=== PATIENT | female | born 2005 ===

== ENCOUNTER 2025-03-13 12:57 | Inpatient (IN) | payer OTHER, SELFPAY ==
[2025-03-13 13:05] VITALS: BP 115/75; BP 123/80; PULSE 122; PULSE 124; RESP 18; TEMP 37.1; O2SAT 100; BMI 25.5
[2025-03-13 13:17] VITALS: BP 123/80; PULSE 122; RESP 18; TEMP 37.1; O2SAT 100
--- NOTE | 2025-03-13 13:26 | ECG_ITS ---
Test Reason : OVERDOSE Blood Pressure : */* mmHG Vent. Rate : 99 BPM Atrial Rate : 99 BPM P-R Int : 142 ms QRS Dur : 98 ms QT Int : 356 ms P-R-T Axes : 69 92 34 degrees QTcB Int : 456 ms Normal sinus rhythm Rightward axis Incomplete right bundle branch block Septal infarct , age undetermined Abnormal ECG No previous ECGs available Referred By: Generic ED Physician Electronically Signed By: Ric Ruelas
--- NOTE | 2025-03-13 13:33 | ED.GENADULT ---
HPI - General Adult General Chief complaint: Psychiatric Symptoms Stated complaint: SI Time Seen by Provider: 03/13/25 13:27 Source: patient, EMS, RN notes reviewed and old records reviewed Mode of arrival: EMS Limitations: no limitations History of Present Illness ED Provider: Nu FISH narrative: Patient is a 19-year-old female with history of self-harm presenting to the emergency department via EMS after intentionally ingesting Aleve, Lamictal, Ativan, trazodone in an attempt at self harm prior to arrival. She self induced vomiting then called 911. She is not forthcoming when answering questions, smiling inappropriately, but does state that she has both a therapist and psychiatrist in the community. She states that she just returned to school after a 6 month medical leave of absence. She reports history of intentional self harm. Denies homicidal ideation, auditory or visual hallucinations. Reports increased depression. Did not arrive on a section 12 but placed on one by Dr. Schumacher, ED attending, on arrival at recommendation of CARE team. She reports mild lightheadedness, denies any chest or abdominal pain, nausea, or any other physical complaints. Poison control contacted by RN prior to my assessment. complaint: toxic ingestion Related Data Home Medications ?Medication ?Instructions ?Recorded ?Confirmed escitalopram oxalate 20 mg tablet 20 mg PO DAILY 03/14/25 03/14/25 lamotrigine 100 mg tablet 100 mg PO BID 03/14/25 03/14/25 trazodone 50 mg tablet 12.5 - 25 mg PO BEDTIME 03/14/25 03/14/25 Allergies Allergy/AdvReac Type Severity Reaction Status Date / Time Penicillins Allergy Hives Verified 03/13/25 13:13 Review of Systems Review of Systems: As per HPI Yes all other systems are reviewed and are negative Constitutional: Constitutional: Reports as per HPI [facility] Past Medical History Medical History (Updated 03/17/25 @ 22:50 by Renard Ferguson MD) Borderline personality disorder MDD (major depressive disorder), recurrent severe, without psychosis Social History Social History Household Members: Other Household Members Other:: college dorm Housing: Other Do you presently have visiting nurse or other home services: No Patient Tobacco Use Status: Never used Tobacco Smoked in Last 30 Days: No e-Cigarette/Vaping Use: Never Used Use of substances other than those prescribed or required for medical reasons: Yes Substance Use Type: Marijuana Substance Use Frequency: Occasionally Currently Displaying Signs/Symptoms of Drug Intoxication Withdrawal: No Do you feel safe in your current relationship?: No Current Relationship Advance Directives: No Advance Directives Information Provided: Yes Do you have thoughts of harming others: None Do you have a plan to hurt others: No Plan Recently lost weight without trying: No Nutrition Risks: No Nutritional Risk Patient : No : No Poor oral hygiene: No service: No Sexual orientation: Unable to collect Physical Exam ED Vital Signs: Vital Signs - 24 hr 03/15/25 14:46 03/16/25 06:23 Temperature 97.2 F 97.1 F Pulse Rate 78 61 Respiratory Rate 14 18 Blood Pressure 135/69 140/74 H Pulse Oximetry 99 100 Oxygen Delivery Method Room Air Room Air BMI result Body Mass Index 25.5 Vital signs have been reviewed and appear to be correct. Blood pressure normal. Heart rate tachycardic. Respiratory rate normal. Temperature normal. Oxygen saturation normal. Const General: cooperative, healthy appearing and no acute distress Orientation/consciousness: oriented to person, oriented to place, oriented to time and patient oriented x3 Limitations: no limitations [facility] Head: Yes normocephalic and Yes atraumatic Ears: external ears normal General nose exam: Normal external nose present Face and sinus: Yes face symmetric Mouth: oropharynx normal and moist mucous membranes Throat: Yes uvula midline Eyes Pupils: Equal, round and reactive pupils present Neck Neck: Yes normal visual inspection and Yes supple Resp Effort & Inspection: normal respiratory effort and able to speak in complete sentences Auscultation: clear to auscultation bilaterally Cardio Rate: regular rate Rhythm: regular rhythm Heart sounds: S1 normal heart sound present and S2 normal heart sound present GI Palpation (GI): Soft to palpation and nontender Auscultation: normoactive bowel sounds General: Yes no CVA tenderness Back/Spine/Pelvis Back: no CVA tenderness Skin Other: healed linear scars to bilateral forearms General skin exam: elasticity normal and turgor normal Neuro General: oriented to person, oriented to place, oriented to time, patient oriented x3, moves all extremities, no focal motor deficits and CN's II-XI intact bilaterally Cranial nerves: Yes Equal, round and reactive pupils present Cognition (Neuro): normal cognition Extrem General: Yes full ROM, Yes no pedal edema and Yes no calf tenderness Psych Appearance: grossly normal Mental Status: mental status grossly normal Speech and movement: Normal speech and movement present Affect: Other affect and mood findings present (inappropriate ) Attitude: Guarded attititude/behavior present and Refuses to answer (attititude/behavior) Thought process: Normal thought process present Thought content: Suicidality present, no homicidality, no hallucinations and Depressive thoughts present Insight: Limited insight present (Psych) Judgement: Limited judgement present (Psych) Course Reevaluation(s) Reevaluation #1: Repeat EKG shows slight increase of QTc. Patient remains on traffic monitor specialist. No new complaints. Time: 15:42 Reevaluation #2: Poison control called back, recommending IV fluids and repeat CMP at 1800. Time: 17:01 Reevaluation #3: Third EKG with improving QTc, repeat CMP WNL. Will medically clear patient at this time and place on physician observation for CARE team evaluation. Patient is alert and oriented x3, hemodynamically stable, tachycardia has improved with IV fluids. Time: 19:36 Additional Reevaluation(s): Time: 04:54 Date: 03/14/25 Provider: Fritz Schumacher MD Patient in physician observation for psychiatric evaluation.? No acute events reported overnight. No current complaints. VS stable.? Patient is in bed search status. Will continue to monitor. Time: 07:52 Date: 03/15/25 Provider: Fritz Schumacher MD Patient in physician observation for psychiatric evaluation.? No acute events reported overnight. No current complaints. VS stable.? Patient is in bed search status. Will continue to monitor. DR. No's Progress note 08:00, 03/16/2025: Patient in physician observation for psych evaluation, no acute events reported by nurse overnight, no current complaints, VSS, care team input is appreciated, bed search is underway, continue physician observation. Time: 17:53 Date: 03/16/25 Provider: Fritz Schumacher MD Physician observation ended at 17:53.Patient to be admitted as inpatient to psychiatry. Medications Administered Generic Name Dose Route Start Last Admin Trade Name Freq PRN Reason Stop Dose Admin Al Hydroxide/Mg Hydroxide 30 ml 03/16/25 15:03 03/24/25 18:03 Magnesium Hydrox/Alum Hydrox 30 Ml Oral.Susp PO 30 ml Q6H PRN Administration Heartburn/Nausea Clonidine HCl 0.1 mg 03/17/25 12:13 03/24/25 10:54 Clonidine Hcl 0.1 Mg Tablet PO 0.1 mg Q4H PRN Administration moderate anxiety Protocol Escitalopram Oxalate 20 mg 03/14/25 09:00 03/26/25 08:03 Escitalopram Oxalate 20 Mg Tablet PO 20 mg DAILY YVONNE Administration Guanfacine HCl 2 mg 03/26/25 09:00 03/26/25 08:03 Guanfacine Hcl Er 2 Mg Tab.Er.24h PO 2 mg DAILY YVONNE Administration Lamotrigine 100 mg 03/25/25 21:00 03/26/25 08:03 Lamotrigine 100 Mg Tablet PO 100 mg BID YVONNE Administration Lorazepam 1 mg 03/16/25 18:29 03/16/25 18:44 Lorazepam 1 Mg Tablet PO 1 mg DAILY PRN Administration severe anxiety Trazodone HCl 50 mg 03/16/25 15:03 03/25/25 22:32 Trazodone Hcl 50 Mg Tablet PO 50 mg BEDTIME MRX1 PRN Administration Insomnia Trazodone HCl 50 mg 03/17/25 21:00 03/25/25 21:31 Trazodone Hcl 50 Mg Tablet PO 50 mg BEDTIME YVONNE Administration Discontinued Medications Generic Name Dose Route Start Last Admin Trade Name Asifq PRN Reason Stop Dose Admin Guanfacine HCl 1 mg 03/24/25 16:40 03/25/25 07:58 Guanfacine Hcl Er 1 Mg Tab.Er.24h PO 1 mg DAILY YVONNE Administration Guanfacine HCl 1 mg 03/25/25 13:53 03/25/25 14:37 Guanfacine Hcl Er 1 Mg Tab.Er.24h PO 03/25/25 13:54 1 mg ONCE ONE Administration Sodium Chloride 1,000 mls @ 999 mls/hr 03/13/25 17:00 03/13/25 18:39 Ns IV 03/13/25 18:00 Infused .Q1H1M YVONNE Infusion Sodium Chloride 1,000 mls @ 999 mls/hr 03/13/25 18:15 03/13/25 19:40 Ns IV 03/13/25 19:15 Infused .Q1H1M YVONNE Infusion Lamotrigine 100 mg 03/14/25 09:00 03/14/25 09:13 Lamotrigine 100 Mg Tablet PO 100 mg BID YVONNE Administration Lamotrigine 75 mg 03/14/25 20:56 03/14/25 21:11 Lamotrigine 25 Mg Tablet PO 03/14/25 20:57 75 mg BEDTIME ONE Administration Lamotrigine 75 mg 03/15/25 21:00 03/24/25 21:46 Lamotrigine 25 Mg Tablet PO 75 mg BEDTIME YVONNE Administration Lamotrigine 100 mg 03/15/25 09:00 03/25/25 07:58 Lamotrigine 100 Mg Tablet PO 100 mg DAILY YVONNE Administration Perphenazine 4 mg 03/20/25 15:49 03/22/25 10:51 Perphenazine 4 Mg Tablet PO 4 mg BID PRN Administration grounding support Perphenazine 2 mg 03/23/25 11:35 03/24/25 08:42 Perphenazine 2 Mg Tablet PO 2 mg DAILY YVONNE Administration Risperidone 0.5 mg 03/17/25 13:05 03/18/25 21:21 Risperidone 0.5 Mg Tablet PO 0.5 mg DAILY YVONNE Administration Risperidone 0.5 mg 03/19/25 21:00 03/22/25 20:54 Risperidone 0.5 Mg Tablet PO 0.5 mg BEDTIME YVONNE Administration Risperidone 0.25 mg 03/19/25 14:47 03/20/25 10:00 Risperidone 0.25 Mg Tablet PO 0.25 mg BID PRN Administration Grounding support Trazodone HCl 25 mg 03/14/25 21:00 03/16/25 22:43 Trazodone Hcl 25 Mg Halftab PO 25 mg BEDTIME YVONNE Administration Medical Decision Making Medical Decision Making MDM Narrative: Patient is a 19-year-old female with history of self-harm presenting to the emergency department via EMS after intentionally ingesting Aleve, Lamictal, Ativan, trazodone in an attempt at self harm prior to arrival. On exam patient is awake, A+Ox3, VS WNL, afebrile, normal neurological exam without focal deficits, physical exam findings as above. Given reported symptoms and physical exam findings, initial differential includes but is not limited to cardiac arrhythmia, electrolyte abnormality, depression, suicidal ideation, intentional ingestion. Poison control recommending labs, acetaminophen and salicylate levels, EKGs Q2Hx3, then Q4H, symptomatic management. Labs unremarkable, salicylates and acetaminophen negative. Urine drug screen negative. Initial EKG shows normal sinus rhythm, slightly prolonged QTc. Will plan to monitor per recommendations of poison control. 2:37 PM 03/15/2025 (Dr. Donny Proctor): Patient will continue with bed search, no other issues reported Differential Diagnosis Differential Diagnoses: The differential diagnosis associated with the presentation includes as per [facility] Admission/Observation Consideration of admission/observation: Escalation of care including admission/observation considered Consult Healthcare Provider Management of the patient was discussed with: Behavioral Health Provider Lab Data [facility] Lab Attestation statement: I reviewed the patient's lab results. as per [facility] 03/13/25 13:55 03/17/25 08:58 Labs: Lab Results 03/13/25 03/13/25 03/13/25 Range/Units 13:50 13:54 13:55 WBC 8.0 (4.8-10.8) X10*3/uL RBC 4.28 (4.20-5.50) X10*6/uL Hgb 13.1 (12.0-16.0) g/dl Hct 38.9 (37.0-47.0) % MCV 90.9 (80.0-98.0) fL MCH 30.6 (27.0-33.0) pg MCHC 33.7 (31.0-35.0) g/dl RDW 12.4 (11.0-16.0) % Plt Count 246 (160-400) X10*3/uL MPV 10.0 (9.4-12.3) fL Immature Gran % (Auto) 0.4 (0.0-0.4) % Neut % (Auto) 85.3 H (45-73) % Lymph % (Auto) 7.5 L (20-40) % Pepin % (Auto) 6.0 (2-11) % Eos % (Auto) 0.4 (0-4) % Baso % (Auto) 0.4 (0-2) % Lymph # (Auto) 0.6 L (1.2-4.9) X10*3/uL Pepin # (Auto) 0.5 (0.1-1.2) X10*3/uL Eos # (Auto) 0.0 (0.0-0.4) X10*3/uL Baso # (Auto) 0.0 (0.0-0.2) X10*3/uL Abs Immat Gran (auto) 0.03 (0.00-0.03) X10*3/uL Absolute Neuts (auto) 6.9 (2.0-8.3) x10*3/uL Absolute Nucleated RBC 0.000 (0.0-0.012) X10*3/uL Nucleated RBC % (auto) 0.0 (0.0-0.2) /100WBC PT 12.1 (10.9-12.4) SEC INR 1.1 (0.9-1.1) Sodium 142 (135-145) mmol/L Potassium 3.5 (3.3-5.1) mmol/L Chloride 108 (96-108) mmol/L Carbon Dioxide 26 (22-29) mmol/L Anion Gap 12 (12-20) BUN 11 (9-16) mg/dL Creatinine 0.66 (0.5-1.4) mg/dL Estim Creat Clear Calc 113.1 Estimated GFR > 60 Random Glucose 99 (60-115) mg/dL Calcium 9.0 (8.4-10.2) mg/dL Magnesium 2.0 (1.6-2.6) mg/dL Total Bilirubin 0.1 (0.0-1.0) mg/dL AST 18 (5-31) U/L ALT < 6 (0-31) U/L Alkaline Phosphatase 43 (39-117) U/L Total Protein 6.9 (6.5-8.0) g/dL Albumin 4.5 (3.5-5.0) g/dL Beta HCG, Quant < 2 mIU/mL Urine Color Yellow Urine Appearance Clear Urine pH 6.5 (5.0-9.0) Ur Specific Kennedy 1.025 (1.005-1.025) Urine Protein Negative (Neg-Trace) mg/dL Urine Glucose (UA) Negative (Negative) mg/dL Urine Ketones Negative (Negative) mg/dL Urine Blood Negative (Negative) Urine Nitrite Negative (Negative) Ur Leukocyte Esterase Negative (Negative) Salicylates < 5.0 L (15-30) mg/dL Urine Opiates Screen Not Detected (Not Detect) Ur Buprenorphine Scrn Not Detected (Not Detect) ng/mL Ur Oxycodone Screen Not Detected (Not Detect) ng/mL Urine Methadone Screen Not Detected (Not Detect) ng/mL Urine Fentanyl Screen Not Detected (Not Detect) Acetaminophen < 3 (<30) mcg/mL Ur Barbiturates Screen Not Detected (Not Detect) Ur Phencyclidine Scrn Not Detected (Not Detect) Ur Amphetamines Screen Not Detected (Not Detect) U Benzodiazepines Scrn Not Detected (Not Detect) Urine Cocaine Screen Not Detected (Not Detect) U Marijuana (THC) Screen Not Detected (Not Detect) 03/13/25 Range/Units 18:02 WBC (4.8-10.8) X10*3/uL RBC (4.20-5.50) X10*6/uL Hgb (12.0-16.0) g/dl Hct (37.0-47.0) % MCV (80.0-98.0) fL MCH (27.0-33.0) pg MCHC (31.0-35.0) g/dl RDW (11.0-16.0) % Plt Count (160-400) X10*3/uL MPV (9.4-12.3) fL Immature Gran % (Auto) (0.0-0.4) % Neut % (Auto) (45-73) % Lymph % (Auto) (20-40) % Pepin % (Auto) (2-11) % Eos % (Auto) (0-4) % Baso % (Auto) (0-2) % Lymph # (Auto) (1.2-4.9) X10*3/uL Pepin # (Auto) (0.1-1.2) X10*3/uL Eos # (Auto) (0.0-0.4) X10*3/uL Baso # (Auto) (0.0-0.2) X10*3/uL Abs Immat Gran (auto) (0.00-0.03) X10*3/uL Absolute Neuts (auto) (2.0-8.3) x10*3/uL Absolute Nucleated RBC (0.0-0.012) X10*3/uL Nucleated RBC % (auto) (0.0-0.2) /100WBC PT (10.9-12.4) SEC INR (0.9-1.1) Sodium 143 (135-145) mmol/L Potassium 3.4 (3.3-5.1) mmol/L Chloride 111 H (96-108) mmol/L Carbon Dioxide 26 (22-29) mmol/L Anion Gap 9 L (12-20) BUN 9 (9-16) mg/dL Creatinine 0.64 (0.5-1.4) mg/dL Estim Creat Clear Calc 116.7 Estimated GFR > 60 Random Glucose 91 (60-115) mg/dL Calcium 8.4 D (8.4-10.2) mg/dL Magnesium 2.0 (1.6-2.6) mg/dL Total Bilirubin 0.2 (0.0-1.0) mg/dL AST 16 (5-31) U/L ALT < 6 (0-31) U/L Alkaline Phosphatase 38 L (39-117) U/L Total Protein 6.2 L (6.5-8.0) g/dL Albumin 4.1 (3.5-5.0) g/dL Beta HCG, Quant mIU/mL Urine Color Urine Appearance Urine pH (5.0-9.0) Ur Specific Kennedy (1.005-1.025) Urine Protein (Neg-Trace) mg/dL Urine Glucose (UA) (Negative) mg/dL Urine Ketones (Negative) mg/dL Urine Blood (Negative) Urine Nitrite (Negative) Ur Leukocyte Esterase (Negative) Salicylates (15-30) mg/dL Urine Opiates Screen (Not Detect) Ur Buprenorphine Scrn (Not Detect) ng/mL Ur Oxycodone Screen (Not Detect) ng/mL Urine Methadone Screen (Not Detect) ng/mL Urine Fentanyl Screen (Not Detect) Acetaminophen (<30) mcg/mL Ur Barbiturates Screen (Not Detect) Ur Phencyclidine Scrn (Not Detect) Ur Amphetamines Screen (Not Detect) U Benzodiazepines Scrn (Not Detect) Urine Cocaine Screen (Not Detect) U Marijuana (THC) Screen (Not Detect) Independent Interpretation I performed an independent interpretation of an: EKG (initial EKG shows normal sinus rhythm, rate 99bpm, normal IN interval, slightly prolonged QTc) Discharge Plan Discharge Clinical Impression: Intentional overdose, Suicidal ideation Patient Disposition: Admitted As Inpatient Interventions: Admission Worksheet (ED) Last Done: 03/16/25 17:53 Discharge Date/Time: 03/16/25 17:53
[2025-03-13 14:00] LABS: MANUAL DIFF FLAG NO
[2025-03-13 14:02] LABS: Hematocrit 38.9 % (37.0-47.0); Hemoglobin 13.1 g/dl (12.0-16.0); Imm Gran Abs Auto 0.03 X10*3/uL (0.00-0.03); Imm Gran Pct Auto 0.4 % (0.0-0.4); Lymphocytes Absolute Auto 0.6 X10*3/uL (1.2-4.9); Mean Corpuscular HGB Conc 33.7 g/dl (31.0-35.0); Mean Corpuscular Hemoglobin 30.6 pg (27.0-33.0); Mean Corpuscular Volume 90.9 fL (80.0-98.0); NRBC Abs Auto 0.000 X10*3/uL (0.0-0.012); NRBC Pct Auto 0.0 /100WBC (0.0-0.2); Platelet Count 246 X10*3/uL (160-400); Red Blood Count 4.28 X10*6/uL (4.20-5.50); White Blood Count 8.0 X10*3/uL (4.8-10.8)
[2025-03-13 14:03] LABS: Appearance Urine Clear; Glucose Urine UA Negative (Negative); PH 6.5 (5.0-9.0); Specific Gravity - Urine 1.025 (1.005-1.025)
[2025-03-13 14:12] LABS: Cannabinoid Screen Urine Not Detected (Not Detect)
[2025-03-13 14:19] LABS: INTERNATIONAL NORM RATIO 1.1 (0.9-1.1); Prothrombin Time 12.1 SEC (10.9-12.4)
[2025-03-13 14:26] LABS: Alanine Aminotransferase < 6 U/L (0-31); Albumin Level 4.5 g/dL (3.5-5.0); Alkaline Phosphatase 43 U/L (39-117); Anion Gap 12 (12-20); Aspartate Amino Transferase 18 U/L (5-31); Blood Urea Nitrogen 11 mg/dL (9-16); Calcium 9.0 mg/dL (8.4-10.2); Carbon Dioxide 26 mmol/L (22-29); Chloride 108 mmol/L (96-108); Creatinine Clr Calc Pharmacy 113.1; Estimated Glomerular Filt Rate > 60; Magnesium 2.0 mg/dL (1.6-2.6); Potassium 3.5 mmol/L (3.3-5.1); Sodium 142 mmol/L (135-145); Total Protein 6.9 g/dL (6.5-8.0)
[2025-03-13 14:26] LABS: Acetaminophen LAB < 3 mcg/mL (<30); Salicylate < 5.0 mg/dL (15-30)
--- NOTE | 2025-03-13 14:41 | PC.NURSE ---
RN contacted Poison Controlnwith updated information. Pt reported that she took a handful of Aleve, lamictal, trazadone 200mg, 6-7 ativan. Then she vomited and called EMS. Poison control advised providers to draw labs: mag, potassium and replace if under 2 and 4, respectively. Other labs: Tylenol, aspirin, liver funct, calcium, phos. Suggested serial EKG to monitor for prolonged QT. Monitor for drowsiness. Pt is alert, oriented, cooperative. Elevated heart rate 110's. On room air. She reports that she has a support person and has already been in contact with her therapist, who knows she is in the hospital. Conversing with staff and visitor at this time.
--- NOTE | 2025-03-13 15:21 | MHC.CARE ---
Addendum entered by Chelo Neal LCSW 03/13/25 16:50: Donovan calls back to inform the CARE Team that it has been decided that Pt will be forced to take a medical leave. Pt is originally from [place]. Preferred name is Yoon and uses they/them pronouns. Original Note: Donovan from [facility] called to provide further collateral on Pt. Pt reportedly just returned to school from a medical leave. Diagnoses in question but not confirmed are Borderline Personality Disorder and ASD. Pt struggles with interpersonal relationships and chronic SI at baseline however typically does not act on the SI. Pt reportedly took prescription and non prescription medications in a suicide attempt and then called a friend to inform them. Pt was transported to ED via EMS and was not on a Section 12. Pt is now on Section 12. Pt is very involved with off campus DBT therapist (info unknown). Donovan is environmental research project manager nilsa and asked to be contacted once Pt has been assessed and disposition has been reached. Her personal cell phone is [phone].
--- NOTE | 2025-03-13 15:28 | ECG_ITS ---
Test Reason : QTC Blood Pressure : */* mmHG Vent. Rate : 116 BPM Atrial Rate : 116 BPM P-R Int : 130 ms QRS Dur : 94 ms QT Int : 336 ms P-R-T Axes : 70 95 37 degrees QTcB Int : 467 ms Sinus tachycardia Rightward axis Incomplete right bundle branch block Nonspecific ST abnormality Abnormal ECG When compared with ECG of 13-Mar-2025 13:44, No significant change was found Referred By: Esther Judge Electronically Signed By: Ric Ruelas
--- OUTSIDE RECORDS SUMMARY | 2025-03-13 15:32 | XMS_ITS | Encounter Summary ---
Author Organization [facility] spital Address [address] [place] [address] Phone Care Team Providers Care Solar Energy Systems Engineer Name Role Phone Mame Liu MD Unavailable [phone] Mame Liu MD Primary Care Provider [phone] Mame Liu MD Unavailable [phone] Toyin Murdock MD Unavailable Encounter Details Date Type Department Care Team (Late st Contact Info) Description 02/15/2024 Lab Requisition [facility] [address] [place] [id number] Mame Liu MD [facility] [address] [place] [address] Social History Tobacco Use Types Packs/Day Years Used Date Smoking Tobacco: Never Assessed Comments Unknown Sex and Gender Information Value Date Recorded Sex Assigned at Not on file Legal Sex Female 5:27 PM EDT Gender Identity Not on file Sexual Orientation Not on file documented as of this encounter Plan of Treatment Not on file documented as of this encounter Procedures Procedure Name Priority Date/Time Associated Diagnosis Comments CBC W/ AUTO DIFFERENTIAL Routine 02/15/2024 10:23 AM EDT THYROID STIMULATING HORMONE Routine 02/15/2024 10:23 AM EDT documented in this encounter Results * Thyroid Stimulating Hormone (02/15/2024 10:23 AM EDT) Thyroid Stimulating Hormone 0.990 0.700 - 5.700 mcunit/mL 02/15/2024 3:44 PM EDT [facility] Blood Venous structure / Unknown 02/15/2024 10:23 AM EDT 02/15/2024 2:36 PM EDT us Mame Liu MD LAB BLOOD ORDERABLES Erna schuler Result [facility] [address] [place] [address], * (ABNORMAL) Complete Blood Count with Differential (02/15/2024 10:23 AM EDT) WBC 4.78(L) 4.94 - 10.04 K cells/uL LAB HEMATOLOGY METHOD 02/15/2024 3:17 PM EDT [facility] RBC 4.56 4.03 - 4.91 M cells/uL LAB HEMATOLOGY METHOD 02/15/2024 3:17 PM EDT [facility] Hemoglobin 14.0 11.4 - 14.8 g/dL LAB HEMATOLOGY METHOD 02/15/2024 3:17 PM EDT [facility] Hematocrit 42.4 35.5 - 44.6 % LAB HEMATOLOGY METHOD 02/15/2024 3:17 PM EDT [facility] MCV 93.0 80.7 - 93.7 fL LAB HEMATOLOGY METHOD 02/15/2024 3:17 PM EDT [facility] MCH 30.7 25.7 - 31.2 pg LAB HEMATOLOGY METHOD 02/15/2024 3:17 PM EDT [facility] MCHC 33.0 31.3 - 34.0 g/dL LAB HEMATOLOGY METHOD 02/15/2024 3:17 PM EDT [facility] RDW 12.1 11.9 - 14.8 % LAB HEMATOLOGY METHOD 02/15/2024 3:17 PM EDT [facility] Platelets 233 199 - 352 K cells/uL LAB HEMATOLOGY METHOD 02/15/2024 3:17 PM EDT [facility] MPV 11.1 9.6 - 11.9 fL LAB HEMATOLOGY METHOD 02/15/2024 3:17 PM EDT [facility] Nucleated RBCs % 0.0 % LAB HEMATOLOGY METHOD 02/15/2024 3:17 PM EDT [facility] Absolute Nucleated RBC Count 0.00 K cells/uL LAB HEMATOLOGY METHOD 02/15/2024 3:17 PM EDT [facility] Neutrophils and Bands % 54.1 46.0 - 68.6 % LAB HEMATOLOGY METHOD 02/15/2024 3:17 PM EDT [facility] Lymphocytes % 35.6 21.8 - 42.1 % LAB HEMATOLOGY METHOD 02/15/2024 3:17 PM EDT [facility] Monocytes % 8.2 5.6 - 10.2 % LAB HEMATOLOGY METHOD 02/15/2024 3:17 PM EDT [facility] Eosinophils % 1.3 0.6 - 3.8 % LAB HEMATOLOGY METHOD 02/15/2024 3:17 PM EDT [facility] Basophils % 0.6 0.3 - 0.9 % LAB HEMATOLOGY METHOD 02/15/2024 3:17 PM EDT [facility] Immature Granulocytes % 0.2 0.2 - 0.5 % LAB HEMATOLOGY METHOD 02/15/2024 3:17 PM EDT [facility] Absolute Neutrophil Count 2.59 2.43 - 6.42 K cells/uL LAB HEMATOLOGY METHOD 02/15/2024 3:17 PM EDT [facility] Absolute Lymphocyte Count 1.70 1.51 - 2.99 K cells/uL LAB HEMATOLOGY METHOD 02/15/2024 3:17 PM EDT [facility] Absolute Monocyte Count 0.39 0.36 - 0.77 K cells/uL LAB HEMATOLOGY METHOD 02/15/2024 3:17 PM EDT [facility] Absolute Eosinophil Count 0.06 0.04 - 0.27 K cells/uL LAB HEMATOLOGY METHOD 02/15/2024 3:17 PM EDT [facility] Absolute Basophil Count 0.03 0.02 - 0.06 K cells/uL LAB HEMATOLOGY METHOD 02/15/2024 3:17 PM EDT [facility] Absolute Immature Granulocyte Count 0.01 0.01 - 0.04 K cells/uL LAB HEMATOLOGY METHOD 02/15/2024 3:17 PM EDT [facility] Blood Venous structure / Unknown 02/15/2024 10:23 AM EDT 02/15/2024 2:36 PM EDT us Mame Liu MD LAB BLOOD ORDERABLES Erna schuler Result [facility] [address] [place] [address], documented in this encounter Visit Diagnoses Not on filedocumented in this encounter Care Teams Solar Energy Systems Engineer Relationship Specialty Start Date End Date Mame Liu MD [address] [place] [id number] PCP - Insurance PCP 07/03/18 Mame Liu MD [address] [place] [id number] PCP - General 03 Mame Liu MD [address] [place] [id number] PCP - Clinical PCP 10/28/12 Toyin Murdock MD [address] [place], [place] [id number] Hospice Volunteer 11/17/23 documented as of this encounter
--- OUTSIDE RECORDS SUMMARY | 2025-03-13 15:33 | XMS_ITS | Clinical Summary ---
Author Organization [facility] spital Address [address] [place] [phone] Phone Care Team Providers Care Air Analysis Technician Name Role Phone Mame Liu MD Unavailable [phone] Mame Liu MD Primary Care Provider [phone] Mame Liu MD Unavailable [phone] Toyin Murdock MD Unavailable [phone] Immunizations Immunization Administration Dates Next Due Moderna SARS-CoV-2 05/29/2021 Pfizer Purple Cap SARS-CoV-2 10/30/2020,10/07/19 21 Social History Tobacco Use Types Packs/Day Years Used Date Smoking Tobacco: Never Assessed Comments Unknown Sex and Gender Information Value Date Recorded Sex Assigned at Not on file Legal Sex Female 5:27 PM EDT Gender Identity Not on file Sexual Orientation Not on file Last Filed Vital Signs Vital Sign Reading Time Taken Comments Blood Pressure 140/40 11/03/2021 2:59 PM EDT Pulse 81 11/03/2021 2:53 PM EDT Temperature - - Respiratory Rate - - Oxygen Saturation 100% 11/03/2021 2:53 PM EDT Inhaled Oxygen Concentration - - Weight 46.3 kg (102 lb 1.2 oz) 11/03/2021 2:53 P M EDT Height 155.8 cm (5' 1.34 ) 11/03/2021 2:53 PM ED T Body Mass Index 19.07 11/03/2021 2:53 PM EDT Plan of Treatment Health Maintenance Due Date Last Done Comments HIV Screening 2003 MMR Vaccines (1 of 1 - Standard series) 2004 DTaP/Tdap/Td Vaccines (1 - Tdap) 2010 Varicella Vaccines (1 of 2 - 13+ 2-dose series) 2016 HPV Vaccines (1 - 3-dose series) 2018 Meningococcal B Vaccine (1 o f 2 - Standard) 2019 Hepatitis C Screening 2021 Hepatitis B Vaccines (1 of 3 - 19+ 3-dose series) 2022 Influenza Vaccine (#1) 2025 Anemia Screening 02/14/2029 02/15/2024, 09/09/2020 HIB Vaccines Aged Out No longer eligi ble based on patient's age to complete this topic Hepatitis A Vaccines Aged Out No long er eligible based on patient's age to complete this topic IPV Vaccines Aged Out No longer eligi ble based on patient's age to complete this topic Meningococcal Vaccine Aged Out No mika silvio eligible based on patient's age to complete this topic Pneumococcal Vaccine: Pediatrics (0 to 5 Years) and At-Risk Patients (6 to 49 Years) Aged Out No longer eligible b ased on patient's age to complete this topic Rotavirus Vaccines Aged Out No longer eligible based on patient's age to complete this topic Procedures Procedure Name Priority Date/Time Associated Diagnosis Comments CBC W/ AUTO DIFFERENTIAL Routine 02/15/2024 10:23 AM EDT from Last 3 Months or Most Recently Relevant to Health Maintenance Results * (ABNORMAL) Complete Blood Count with Differential (02/15/2024 10:23 AM EDT) WBC 4.78(L) 4.94 - 10.04 K cells/uL LAB HEMATOLOGY METHOD 02/15/2024 3:17 PM EDT [facility] RBC 4.56 4.03 - 4.91 M cells/uL LAB HEMATOLOGY METHOD 02/15/2024 3:17 PM EDT [facility] Hemoglobin 14.0 11.4 - 14.8 g/dL LAB HEMATOLOGY METHOD 02/15/2024 3:17 PM EDT [facility] Hematocrit 42.4 35.5 - 44.6 % LAB HEMATOLOGY METHOD 02/15/2024 3:17 PM EDT [facility] MCV 93.0 80.7 - 93.7 fL LAB HEMATOLOGY METHOD 02/15/2024 3:17 PM EDT [facility] MCH 30.7 25.7 - 31.2 pg LAB HEMATOLOGY METHOD 02/15/2024 3:17 PM EDT [facility] MCHC 33.0 31.3 - 34.0 g/dL LAB HEMATOLOGY METHOD 02/15/2024 3:17 PM EDT [facility] RDW 12.1 11.9 - 14.8 % LAB HEMATOLOGY METHOD 02/15/2024 3:17 PM EDT [facility] Platelets 233 199 - 352 K cells/uL LAB HEMATOLOGY METHOD 02/15/2024 3:17 PM EDT [facility] MPV 11.1 9.6 - 11.9 fL LAB HEMATOLOGY METHOD 02/15/2024 3:17 PM EDT [facility] Nucleated RBCs % 0.0 % LAB HEMATOLOGY METHOD 02/15/2024 3:17 PM EDT [facility] Absolute Nucleated RBC Count 0.00 K cells/uL LAB HEMATOLOGY METHOD 02/15/2024 3:17 PM EDT [facility] Neutrophils and Bands % 54.1 46.0 - 68.6 % LAB HEMATOLOGY METHOD 02/15/2024 3:17 PM EDT [facility] Lymphocytes % 35.6 21.8 - 42.1 % LAB HEMATOLOGY METHOD 02/15/2024 3:17 PM EDT [facility] Monocytes % 8.2 5.6 - 10.2 % LAB HEMATOLOGY METHOD 02/15/2024 3:17 PM EDT [facility] Eosinophils % 1.3 0.6 - 3.8 % LAB HEMATOLOGY METHOD 02/15/2024 3:17 PM EDT [facility] Basophils % 0.6 0.3 - 0.9 % LAB HEMATOLOGY METHOD 02/15/2024 3:17 PM EDT [facility] Immature Granulocytes % 0.2 0.2 - 0.5 % LAB HEMATOLOGY METHOD 02/15/2024 3:17 PM EDT [facility] Absolute Neutrophil Count 2.59 2.43 - 6.42 K cells/uL LAB HEMATOLOGY METHOD 02/15/2024 3:17 PM EDT [facility] Absolute Lymphocyte Count 1.70 1.51 - 2.99 K cells/uL LAB HEMATOLOGY METHOD 02/15/2024 3:17 PM EDT [facility] Absolute Monocyte Count 0.39 0.36 - 0.77 K cells/uL LAB HEMATOLOGY METHOD 02/15/2024 3:17 PM EDT [facility] Absolute Eosinophil Count 0.06 0.04 - 0.27 K cells/uL LAB HEMATOLOGY METHOD 02/15/2024 3:17 PM EDT [facility] Absolute Basophil Count 0.03 0.02 - 0.06 K cells/uL LAB HEMATOLOGY METHOD 02/15/2024 3:17 PM EDT [facility] Absolute Immature Granulocyte Count 0.01 0.01 - 0.04 K cells/uL LAB HEMATOLOGY METHOD 02/15/2024 3:17 PM EDT [facility] Blood Venous structure / Unknown 02/15/2024 10:23 AM EDT 02/15/2024 2:36 PM EDT us Mame Liu MD LAB BLOOD ORDERABLES Erna schuler Result Performing Organization Address City/State/[facility] Co de Phone Number [facility] [address] [place] [address], from Last 3 Months or Most Recently Relevant to Health Maintenance Insurance Care Teams Air Analysis Technician Relationship Specialty Start Date End Date Mame Liu MD [address] [place] [address] PCP - Insurance PCP 07/03/18 Mame Liu MD [address] [facility] [address] [place] [address] PCP - General 03 Mame Liu MD [address] [address] PCP - Clinical PCP 10/28/12 Toyin Murdock MD [address] [place] [id number] Route Sales Associate 11/17/23
--- OUTSIDE RECORDS SUMMARY | 2025-03-13 15:33 | XMS_ITS | Clinical Summary ---
Author Organization [facility] Address [address] [place] [phone] Phone Care Team Providers Care Bulldogger Name Role Phone Mame Liu MD Primary Care Provider [phone] Allergies No known active allergies Medications CITALOPRAM HYDROBROMIDE PO Take by mouth. 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 Sending TFTs and CBC to evaluate for potential medical triggers (like thyroid disease, anemia). I suspect symptoms are most likely related to underlying mental health challenges, especially given that symptoms are better when at college. Encouraged to see out therapy that will push them to improve, even if it is challenging. Neuropsych report recommended DBT, and I think trying DBT with a different provider would be a good idea. Reach out if any worsening/concerns. Borderline personality disorder 01/31/2024 Overview (06/06/2024): Based on neuropsych testing spring/summer 2023 at [facility]. Not felt to have autism spectrum disorder. DBT recommended. See note from SW with additional thoughts 06/10 Nevus 04/08/2023 Overview (01/11/2025): 02/07: Seen by derm, R superior helical rim: 4 x 2 mm hyperpigmented thin papule with 2 poles of pigment, reassuring ELM; L posterior calf: 3 x 2 mm nevus, slightly hazy. F/u 2 years, sooner if any changes 11/09: Reassuring derm eval Assessment & Plan (10/27/2024 1:54 PM EDT): Due for f/u with dermatology Assessment & Plan (10/25/2023 1:59 PM EDT): Due for f/u summer 2024, sooner if any changes/concerns. Elevated BP without diagnosis of hypertension Overview (12/25/2021): 10/06/20 Was here for well check had elevated BP/HR. Here today for follow up. BP was initially elevated but once in office and relaxed re-checked and was normal. 10/07: BP and pulse again elevated at multiple checks including at school, referred to cardiology 11/06: 24 hour BP normal, with mean 114/65, and pulses also normal. Seen by cardiology, felt to have white coat HTN. Has a murmur and IRBBB on EKG, so echo done and unremarkable, no f/u needed Assessment & Plan (10/28/2024 11:26 AM EDT): Likely white coat HTN--had reassuring eval in the past. Assessment & Plan (10/25/2023 10:01 PM EDT): SBP elevated today, but is very nervous having BP taken, and this is likely white coat HTN--normal 24 hour BP monitor 2 years ago. Assessment & Plan (02/15/2022 8:45 AM EDT): Elevated BP and pulse on presentation to the office today, but once she was calm, these parameters normalized. Discussed that Gayatri should be aware of this dx, and that she had a reassuring cardiology evaluation. Printed out cardiology eval and reviewed with her--so she can take a copy of this to college. Assessment & Plan (09/07/2021 4:44 PM EDT): Elevated BP and pulse, likely white coat HTN. Asked her to have the nurse at school check her BP and pulse on 3 days next week, and send me the results. Assessment & Plan (10/06/2020 5:52 PM EDT): 10/06/20 Was here for well check had elevated BP/HR. Here today for follow up. BP was initially elevated but once in office and relaxed re-checked and was normal. Anxiety and depression 09/09/2020 Overview (10/28/2024): 11/08: Taking citalopram, rx'ed by Dr. Cabello, and finding it helpful. Working with therapist. Has upcoming neuropsych testing--asked [facility] to send me a copy of the report when it is done. 11/09: Working with psychiatrist and therapist at [facility]--doing group and individual therapy Assessment & Plan (10/28/2024 11:27 AM EDT): Working with psychiatrist and therapist at [facility]--doing group and individual therapy. Reviewed 08/01 access to supports--[facility] knows who to reach out to if any worsening or safety concerns. Discussed self-harm--is working with mental health supports to control it, but [facility] agreed to reach out to me if any medical concerns related to self-harm. Assessment & Plan (10/25/2023 10:09 PM EDT): 11/08: Taking citalopram, rx'ed by Dr. Cabello, and finding it helpful. Working with therapist. Has upcoming neuropsych testing--asked [facility] to send me a copy of the report when it is done. Discussed that they shouldn't get too focused on one specific diagnosis or disappointed if the diagnosis is different than what they are expecting--a diagnosis doesn't change who they are. Assessment & Plan (02/15/2022 8:44 AM EDT): Discussed access to supports in and out of college. Gayatri feels well-supported by [facility] and knows to reach out with any concerns. Assessment & Plan (09/07/2021 4:43 PM EDT): Working with [facility] and a DBT therapist--finds them helpful. Assessment & Plan (09/09/2020 1:51 PM EDT): Having anxiety, with panic attacks. Discussed at length with Gayatri. Referred to Jeremías Lubin for therapy, and also encouraged Gayatri to start to open up with her parents more when she feels able to do so. Lipid screening 07/03/2018 Overview (07/04/2018): 07/06: Zbcw=560, HDL=63 Acne vulgaris 07/05/2017 Assessment & Plan (09/07/2021 4:43 PM EDT): Not interested in treatment at this time. Assessment & Plan (09/09/2020 1:49 PM EDT): Using OTC topicals--f/u if interested in rx topicals. Assessment & Plan (07/03/2018 3:50 PM EST): Discussed that differin could help, but not interested in using at this time. Assessment & Plan (07/05/2017 9:26 PM EST): Started on differin at night. Discussed to start use QOD, and increase to QD as tolerated. May cause photosensitivity (so use sunscreen when needed) and may cause dryness (so moisterize if needed). F/u with me in a few weeks; can add in benzaclin at that point if needed. Call with any concerns. Wash face in AM with gentle cleanser. Leg length discrepancy 09/04/2016 Overview (11/28/2019): Leg length discrepancy, seen by ortho 11/01, 2.6cm with right leg longer than left, 'should not cause functional limitation or worsen', no evidence of scoliosis, if develops back pain consider a shoe lift, f/u PRN; f/u 12/05 due to pain, 3/8 in lift shoe insertion ordered, PT recommended for stretching/strengthening, f/u PRN Assessment & Plan (10/25/2023 10:00 PM EDT): Wears shoe lift sometimes; not bothersome. Assessment & Plan (09/07/2021 4:42 PM EDT): Does well with lift in left shoe. Assessment & Plan (09/09/2020 1:48 PM EDT): Doing well with lift in shoe. Assessment & Plan (09/02/2019 4:19 PM EDT): Starting to bother her more. Referred to ortho--Dada Chau, who took over for Dr. Whitlock. Assessment & Plan (07/03/2018 3:49 PM EST): No pain at this time; will let me know if interested in lift or pain develops. Assessment & Plan (07/05/2017 9:25 PM EST): Not bothering her; knows to f/u if interested in a shoe lift. No scoliosis when lift placed. Knee pain, right 06/03/2015 Overview (11/12/2020): Right knee pain/limp 09/28, seen by ortho, normal xray, normal ESR, negative Lyme titer, MRI 10/28 showed abnormal bone marrow signal in distal femur, proximal tibia, proximal fibula, and marrow edema on right, and one film on left obtained and showed similar in left distal femur and proximal tibia; seen by heme 10/28, labs nl including CBC, flow cytometry, LDH, uric acid, smear review, Gaucher's testing, biopsy done to r/o malignancy or other marrow process such as storage disorder; 11/28 biopsies of iliac crest and femur; iliac crest marrow biopsies/aspirates without signs of leukemia or abnormal cells, 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 (per radha, 'can non-specifically be seen in the setting of some sort of trauma or other reactive process in the marrow space'), recommended CBC every 6 months for 2 years then annually, no heme f/u needed; normal CBC 04/02, reviewed by heme who felt at this time check CBC with automated diff (for blasts) every 2 years x 2, then only as needed (see phone encounter 04/10/16); 07/06 normal CBC with diff, reviewed by heme, plan to repeat in 2 years, and if still normal, PRN 09/05: Normal CBC and smear, no f/u needed Assessment & Plan (09/09/2020 1:49 PM EDT): Sent CBC with diff and smear to [facility] for review--reached out to hematology to take a look, and will make f/u plan based on results. Clinically doing well. Assessment & Plan (07/03/2018 3:50 PM EST): No more knee pain. Due for f/u CBC with diff. Assessment & Plan (07/05/2017 9:24 PM EST): Due for repeat CBC next year; knows to f/u if any pain recurs. Vision decreased 06/03/2015 Overview (03/17/2020): Seen at 08/01, minimal refractive error, no need for glasses at this time, also blepharitis (treat with warm soaks and OCuSOFT pads), also a vascularized lid lesion of lower lid of R eye, f/u 1 year, sooner if lid lesion changes; glasses summer 2016; 03/07 glasses rx updated Assessment & Plan (10/25/2023 9:59 PM EDT): Doing well in contact lenses. Assessment & Plan (10/19/2022 3:10 PM EDT): Followed by eye doctor. Assessment & Plan (09/02/2019 12:11 PM EDT): Sees eye doctor regularly, wears glasses. 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 Overview (07/05/2017): Blood in stool as an infant, did well on alimentum, was followed by GI Breech delivery 07/05/2017 07/05/2017 Overview (07/05/2017): Normal hip US 03 Immunizations Immunization Administration Dates Next Due COVID-19 Moderna, bivalent, 12+ years 04/10/2022 COVID-19 Moderna, monovalent , 12+ years 05/29/2021 DTaP 05/28/2008, 5,2003,09/27,2003 HPV Vaccine 9 Valent 02/09/2016,07/12/2015 Hep A, ped/adol 07/03/2018,07/05/2017 Hep B, ped/adol 06/29/2005,03/02/2004,2003 Hib (HbOC) 08/25/2004, 4,2003,07/27 IPV 05/28/2008, 4,2003,07/27 Influenza, injectable, MDCK, preservative free, quadrivalent 03/10/2023,04/10/2022 Influenza, injectable, MDCK, trivalent, preservative free 02/29/2024 Influenza, injectable, quadrivalent 03/31/2021,0 07/05/2017 Influenza, injectable, quadr ivalent, preservative free 02/12/2020,09/02/2019,07/03/2018,03/30 Influenza, injectable, trivalent 06/02/2010 Influenza, injectable, triva lent, preservative free 05/28/2008,06/26/2006,05/24/2006 Influenza, intranasal, quadrivalent 06/03/2015,1 08/05/2013,06/05/2013 Influenza, intranasal, trivalent 06/04/2012,05/18 MMR 08/25/2008,08/25/2004 Meningococcal B Bexsero 10/11/2021,09/07/2021 Meningococcal Conj (Menactra) MCV4P 09/02/2019,1 08/05/2013 Pneumococcal Conjugate 08/25/2004,2003,2003,07/27 Tdap 10/19/2022,06/04/2014 Varicella 08/25/2008,06/02/2004 Family History Medical History Relation Name Comments Hyperlipidemia Father Prostate cancer Maternal Grandfather Relation Name Status Comments Father Maternal Grandfather Social History Tobacco Use Types Packs/Day Years Used Date Smoking Tobacco: Never Smokeless Tobacco: Never Comments:reports never smoki ng tobacco Alcohol Use Standard Drinks/Week Comments No 0 (1 standard drink = 0.6 oz pur e alcohol) Hunger/Food Answer Date Recorded In the last 12 months, did y ou or your family ever eat less than you felt you should because there wasn't enough money for food? No 10/20/2024 Stable Housing Answer Date Recorded Are you worried that in the next 2 months you may not have stable housing? No 10/20/2024 Transportation Concerns Answer Date Rec orded In the last 12 months, have you or your family ever had to go without healthcare because you didn't have a way to get there? No 10/20/2024 Hazards in Home Answer Date Recorded Think about the place you li ve. Do you have problems with any of the following? Pests (mice or roaches), mold, no/not working smoke detectors, water leaks, no window guards. Yes 2024 Financing Utilities Answer Date Recorde d In the last 12 months, has t he electric, gas, oil, or water company threatened to shut off your services in your home? No 10/20/2024 Safety at Home Answer Date Recorded Are you or your family worried about feeling saf e in your home? No 10/20/2024 Outside Support Answer Date Recorded Do you feel that you need mo re support from other people or programs to help you care for yourself or your family? No 10/20/2024 Understanding Health Concerns Answer Da te Recorded Do you need help understandi ng your or your child's healthcare needs (diagnosis, medications, plan, etc.)? No 10/20/2024 Financing Health Concerns Answer Date R ecorded In the last 12 months, was t here a time when your child needed to see a doctor or get medications or supplies but could not because of cost? No 10/20/2024 Missing School or Work Answer Date Tarik rded Did you or your child miss s chool or work because of a health problem that could have been avoided? No 10/20/2024 Child Education Answer Date Recorded Do you have concerns about y our/your child's learning or behavior in school, preschool, or daycare? No 10/20/2024 Comments Unknown Sex and Gender Information Value Date Recorded Sex Assigned at Female 10/25/2023 9:41 PM EDT Legal Sex Female 1:05 PM EST Gender Identity Gender nonconforming/non-binary 10/28/2024 11:11 AM EDT Sexual Orientation Nonbinary--uses they /them pronounsSometimes wears a binder but not often.Aroase (aromantic asexual) 09/09/2020 1:40 PM EDT Last Filed Vital Signs Vital Sign Reading Time Taken Comments Blood Pressure 130/62 10/27/2024 3:44 PM EDT Pulse 88 10/25/2023 2:09 PM EDT Temperature 36.7 C (98.1 F) 02/12/2020 12:10 PM EDT Respiratory Rate - - Oxygen Saturation - - Inhaled Oxygen Concentration - - Weight 61.5 kg (135 lb 9.6 oz) 10/27/2024 3:04 P M EDT Height 156.2 cm (5' 1.5 ) 10/27/2024 3:04 PM EDT Body Mass Index 25.21 10/27/2024 3:04 PM EDT Plan of Treatment Health Maintenance Due Date Last Done Comments Chlamydia and Gonorrhea Screening 06/18/2024 Influenza Vaccines (#1) 2025 02/29/20 24, 03/10/2023, 04/10/2022, Additional history exists DTaP,Tdap,and Td Vaccines (8 - Td or Tdap) 10/19/2032 10/19/2022, 06/04/2014, 05/28/2008, Additional history exists HIB Vaccines Completed 08/25/2004, 11/17, 2003, Additional history exists Pneumococcal Vaccine Completed 08/25/2004, 03/02/2004, 2003, Additional history exists Hepatitis B Vaccines Completed 06/29/2005, 03/02/2004, 2003 IPV Vaccines Completed 05/28/2008, 11/17, 2003, Additional history exists MMR Vaccines Completed 08/25/2008, 08/25/2004 Varicella Vaccines Completed 08/25/2008, 06/02/2004 HPV Vaccines Completed 02/09/2016, 07/12/2015 Hepatitis A Vaccines Completed 07/03/2018, 07/05/19 18 Meningococcal Vaccine Completed 09/02/2019, 014 Men B Vaccine Completed 10/11/2021, 09/07/2021 COVID-19 Vaccine Completed 02/29/2024, , 04/10/2022, Additional history exists Insurance [employer] EPO OPEN ACCESS Care Teams Bulldogger Relationship Specialty Start Date End Date Mame Liu MD [address] [place] [phone] PCP - General 08/08/16
--- OUTSIDE RECORDS SUMMARY | 2025-03-13 15:33 | XMS_ITS | Encounter Summary ---
Author Organization [facility] Address [address] [place] [phone] Phone Care Team Providers Care Cnp Name Role Phone Mame Liu MD Primary Care Provider [phone] Encounter Details Date Type Department Care Team ([facility] st Contact Info) Description 01/24/2017 Conversion Encounter Drs. Miller Liu [address] [facility], [address] [place] [address] Mame Liu MD [address] [id number] Social History Tobacco Use Types Packs/Day Years Used Date Smoking Tobacco: Never Comments:reports never smoki ng tobacco Comments Unknown Sex and Gender Information Value Date Recorded Sex Assigned at Female 10/25/2023 9:41 PM EDT Legal Sex Female 1:05 PM EST Gender Identity Gender nonconforming/non-binary 10/28/2024 11:11 AM EDT Sexual Orientation Nonbinary--uses they /them pronounsSometimes wears a binder but not often.Aroase (aromantic asexual) 09/09/2020 1:40 PM EDT documented as of this encounter Plan of Treatment Not on file documented as of this encounter Visit Diagnoses Not on filedocumented in this encounter Care Teams Cnp Relationship Specialty Start Date End Date Mame Liu MD [address] [place] [address] [address] [place] [address] PCP - General 08/08/16 documented as of this encounter
--- OUTSIDE RECORDS SUMMARY | 2025-03-13 15:33 | XMS_ITS | Clinical Summary ---
Author Organization [facility] Address [address] [place] [phone] Phone Care Team Providers Care Acupuncturist Name Role Phone Mame Liu MD Primary Care Provider Allergies Active Allergy Reactions Criticality Noted Date Comments Penicillin 08/27/2024 Medications traZODone (DESYREL) 50 MG tablet 08/15/2024 Active ATIVAN 1 mg tablet 05/18/2023 Active lamoTRIgine (LAMICTAL) 100 MG IMMEDIATE release tablet 03/18/2024 Acti ve tretinoin (RETIN-A) 0.025 % creamIndication s:Acne vulgaris Apply a pea sized amount nightly to affected areas. Can start three nights per week and increase to nightly as tolerated. 45 g 11/11/2024 Active clindamycin-jak zoyl peroxide (BENZACLIN) gelIndications: Acne vulgaris Apply once daily to affected areas in the morning 50 g 1 11/11/2024 Active mupirocin (BACTROBAN) 2 % ointmentIndicat ions:Acne vulgaris Apply twice daily to open, raw areas. 22 g 3 11/11/2024 Active citalopram (CELEXA) 10 MG tablet Take by mouth. Active Active Problems No known active problems Social History Tobacco Use Types Packs/Day Years Used Date Smoking Tobacco: Never Smokeless Tobacco: Never Education Answer Date Recorded Are you interested in more education? Not on shari e 10/29/2022 Are you concerned about learning? Not on file 10/29/2022 No 10/29/2022 No 10/29/2022 Digital Access Answer Date Recorded No 11/12/2022 No 11/12/2022 Reliable internet access at home? Not on file 11/12/2022 Device with a working camera? Not on file Comments Unknown Sex and Gender Information Value Date Recorded Sex Assigned at Female 05/31/2022 11:02 AM EST Legal Sex Female 5:25 PM EST Gender Identity Non-binary 05/31/2022 11:02 AM EST Sexual Orientation Not on file Last Filed Vital Signs Vital Sign Reading Time Taken Comments Blood Pressure 120/81 11/23/2024 4:32 PM EDT Pulse 103 11/23/2024 4:32 PM EDT Temperature 36.9 C (98.4 F) 11/23/2024 4:32 PM EDT Respiratory Rate 20 11/23/2024 4:32 PM EDT Oxygen Saturation 97% 11/23/2024 4:32 PM EDT Inhaled Oxygen Concentration - - Weight 59 kg (130 lb) 11/23/2024 4:32 PM EDT Height 180.3 cm (5' 11 ) 11/23/2024 4:32 PM EDT Body Mass Index 18.13 11/23/2024 4:32 PM EDT Plan of Treatment Upcoming Encounters Date Type Department Care Team (Late st Contact Info) Description 09/02/2025 12:30 PM EDT Office Visit [facility] in [address] [id number] Reema Weeks, OD [address] [phone] Health Maintenance Due Date Last Done Comments DEPRESSION SCREENING 2015 CHLAMYDIA SCREENING 2019 ADOLESCENT UNIVERSAL LIPID SCREENING 2020 HEPATITIS C SCREENING 2021 HIV ONE-TIME SCREENING (18-65 YEARS) 2021 PAP SMEAR 2024 INFLUENZA VACCINE (#1) 2025 4, 03/10/2023, 04/10/2022, Additional history exists SMOKING Hx and SMOKELESS TOBACCO SCREENING 11/23/2025 11/23/2024 Adult Td,Tdap Booster 10/19/2032 10/19/2022, 014 COMBINED DTaP,Tdap,Td (8 - Td or Tdap) 10/19/2032 10/19/2022, 06/04/2014, 05/28/2008, Additional history exists MMR VACCINES Completed 08/25/2008, 08/25/2004 HPV VACCINES Completed 02/09/2016, 07/12/2015 HEPATITIS A VACCINES Completed 07/03/2018, 07/05/19 18 MENINGOCOCCAL VACCINES (ACWY) Completed 09/01/2021, 09/02/2019 MENINGOCOCCAL VACCINES (B) Completed 10/11/2021, COVID-19 VACCINE Completed 02/29/2024, , 04/10/2022, Additional history exists HIB VACCINES Aged Out No longer eligi ble based on patient's age to complete this topic PNEUMOCOCCAL VACCINES (0-49 years) Aged Out No longer eligible based on patient's age to complete this topic Medical Devices Not on file Insurance CIGNA PPO CIGNA PPO CIGNA PPO CIGNA PPO CIGNA PPO CIGNA PPO CIGNA PPO CIGNA PPO CIGNA PPO CIGNA PPO CIGNA PPO CIGNA PPO CIGNA PPO CIGNA PPO CIGNA PPO Care Teams Acupuncturist Relationship Specialty Start Date End Date Mame Liu MD [address] [place] [phone] [email or web address] PCP - General 07/11/13 Additional Source Comments The information contained in this document represents components of the legal health record. It is not the complete legal health record.[facility]
[2025-03-13 15:45] VITALS: BP 125/61; PULSE 114; RESP 18; TEMP 36.9; O2SAT 100
[2025-03-13 16:18] VITALS: BP 125/61; PULSE 117; RESP 18; TEMP 37.3; O2SAT 99
--- NOTE | 2025-03-13 16:54 | PC.NURSE ---
Poison Control called back to inquire about labs and progress of the patient. They recommended repeat labs for electrolytes at 1800. They suggested that IV fluids would be appropriate for her elevated heart rate.
--- NOTE | 2025-03-13 17:27 | ECG_ITS ---
Test Reason : check qtc Blood Pressure : */* mmHG Vent. Rate : 105 BPM Atrial Rate : 105 BPM P-R Int : 134 ms QRS Dur : 90 ms QT Int : 336 ms P-R-T Axes : 62 85 26 degrees QTcB Int : 444 ms Sinus tachycardia Otherwise normal ECG When compared with ECG of 13-Mar-2025 15:42, No significant change was found Referred By: Esther Judge Electronically Signed By: Ric Ruelas
--- NOTE | 2025-03-13 17:30 | PC.NURSE ---
Pt reports she is still seeing double.
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
--- NOTE | 2025-03-13 17:41 | PC.NURSE ---
Pt reports being autistic, borderline personality, depression, anxiety. Reports that being back in school is stressful. She is requesting that her dog, Story, might be able to visit.
[2025-03-13 18:08] VITALS: BP 119/63; PULSE 101; RESP 20; TEMP 37.1; O2SAT 100
[2025-03-13 18:28] LABS: Alanine Aminotransferase < 6 U/L (0-31); Albumin Level 4.1 g/dL (3.5-5.0); Alkaline Phosphatase 38 U/L (39-117); Anion Gap 9 (12-20); Aspartate Amino Transferase 16 U/L (5-31); Blood Urea Nitrogen 9 mg/dL (9-16); Calcium 8.4 mg/dL (8.4-10.2); Carbon Dioxide 26 mmol/L (22-29); Chloride 111 mmol/L (96-108); Creatinine Clr Calc Pharmacy 116.7; Estimated Glomerular Filt Rate > 60; Magnesium 2.0 mg/dL (1.6-2.6); Potassium 3.4 mmol/L (3.3-5.1); Sodium 143 mmol/L (135-145); Total Protein 6.2 g/dL (6.5-8.0)
--- NOTE | 2025-03-13 19:48 | PC.NURSE ---
IV line removed, patient walked to POD by JENNI Rodriguez, patient able to walk to POD w/ a steady gait.
--- NOTE | 2025-03-13 19:59 | MHC.EDTECH ---
pt's belongings moved from [facility] to pod locker #[id number]
--- NOTE | 2025-03-13 20:19 | PC.NURSE ---
PT ARRIVED TO THE ED BH POD AT APPROXIMATELY 1954. PT IS ALERT AND ORIENTED X3. NO APPARENT SIGNS OF DISTRESS. PT IS CURRENTLY TALKING ON THE PHONE. RN SPOKE TO POISON CONTROL WITH UPDATED LABS. WILL OBTAIN EKG AT 2129 ORDERED. WILL CONTINUE TO MONITOR FOR ALTERED LEVEL OF CONSCIOUSNESS AND/OR CHANGES TO VITAL SIGNS.
--- NOTE | 2025-03-13 21:30 | ECG_ITS ---
Test Reason : QTC CHECK Blood Pressure : */* mmHG Vent. Rate : 79 BPM Atrial Rate : 79 BPM P-R Int : 146 ms QRS Dur : 98 ms QT Int : 384 ms P-R-T Axes : 61 90 34 degrees QTcB Int : 440 ms Normal sinus rhythm Rightward axis Incomplete right bundle branch block Cannot rule out Anterior infarct , age undetermined Abnormal ECG When compared with ECG of 13-Mar-2025 17:52, No significant change was found Referred By: Esther Judge Electronically Signed By: Ric Ruelas
--- NOTE | 2025-03-14 02:39 | MHC.EDTECH ---
PT MOVED FROM BH7 TO BH3.
--- NOTE | 2025-03-14 05:59 | PC.NURSE ---
Took over care at 23:00, pt sleeping no sign of distress.
[2025-03-14 06:00] VITALS: BP 122/64; PULSE 64; RESP 15; TEMP 36.8; O2SAT 100
--- NOTE | 2025-03-14 07:09 | PC.NURSE ---
Assumed care, report received. Pt is awake and eating her breakfast. she is currently calm and cooperative.
--- NOTE | 2025-03-14 11:39 | PHA.MEDREC ---
Pharmacy Consult ? Medication Reconciliation Pharmacy has reviewed the medication reconciliation completed by nursing. Called [facility] Jaz Anthony to confirm meds.
--- NOTE | 2025-03-14 13:57 | PC.NURSE ---
Pt is tearful in the am due to feeling like she has nowhere to live. She is given a puzzle and a friend visits her for afew hours which improves her mood.
[2025-03-14 15:29] VITALS: BP 107/56; PULSE 96; RESP 18; TEMP 36.4; O2SAT 100
[2025-03-14 20:01] VITALS: BP 117/59; PULSE 64; RESP 20; TEMP 36.8; O2SAT 99
[2025-03-14] MEDS: traZODone HCL 25 MG HALFTAB PO (21:11)
[2025-03-15 06:32] VITALS: RESP 16
--- NOTE | 2025-03-15 07:19 | PC.NURSE ---
Assumed care, report received. Pt wakes for breakfast, she is calm and cooperative. safety is maintained.
[2025-03-15 08:07] VITALS: BP 143/73; PULSE 87; RESP 14; TEMP 36.6; O2SAT 100
[2025-03-15 14:46] VITALS: BP 135/69; PULSE 78; RESP 14; TEMP 36.2; O2SAT 99
[2025-03-15] MEDS: traZODone HCL 25 MG HALFTAB PO (20:45)
--- NOTE | 2025-03-15 22:53 | PC.NURSE ---
Pt spent the day visiting with friends and doing a puzzle. Pt talks to this comic writer about her parents and that she is not ready to talk to them about her OD. She states she will call them once she is IP. she writes them a letter to explain her feelings. She denies SI at this time.
[2025-03-16 06:23] VITALS: BP 140/74; PULSE 61; RESP 18; TEMP 36.2; O2SAT 100
--- NOTE | 2025-03-16 11:12 | PC.NURSE ---
pt slept till approx 0900, awoke with nad, pleasant and polite, spoke with mother on the phone, medicated as ordered,
[2025-03-16 14:00] VITALS: BP 110/63; PULSE 81; RESP 19; TEMP 36.3; O2SAT 99
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
[2025-03-16 19:30] VITALS: BP 110/72; PULSE 100; RESP 16; TEMP 36.1; O2SAT 99; BMI 24.7
[2025-03-16 20:00] VITALS: BP 126/76; PULSE 72; RESP 16; TEMP 36.9; O2SAT 98
[2025-03-16] MEDS: traZODone HCL 25 MG HALFTAB PO (22:43)
[2025-03-17 07:55] VITALS: BP 104/57; PULSE 69; RESP 16; TEMP 36.7; O2SAT 100
--- NOTE | 2025-03-17 09:04 | HO.PM.IMCN ---
History of Present Illness Data of Consult Service Date: 03/17/25 Primary Care Provider: Unknown Physician HPI Reason for consult: Medical management 19-year-old female with a past medical history of suicide ideation, leg length discrepancy, presented to the ED with a intentional overdose of Alleve, Lamictal, Ativan, and trazodone. She self induce vomiting and then called 911. In the ED she had serial EKGs, with a prolonged QTC initially improving. She was tachycardic which improved with IV fluids. She was evaluated by the care team and recommended for inpatient psychiatric admission. Her tox screen was negative, salicylates and acetaminophen were within normal limits. No evidence of infection in her urine. No electrolyte derangements, magnesium within normal limits, liver function without evidence of injury, no leukocytosis, no evidence of anemia. On exam she has no concerns. Review of Systems Review of Systems: Denies any shortness of breath, chest pain, palpitations, dizziness, lightheadedness, headaches, dysuria, abdominal pain or discomfort, nausea, vomiting or diarrhea. Denies Chills, body aches, muscle aches, fatigue or weight loss. PMFSH Social History Household Members: Other Household Members Other:: [employer] dorm Housing: Other Do you presently have visiting nurse or other home services: No Patient Tobacco Use Status: Never used Tobacco Smoked in Last 30 Days: No e-Cigarette/Vaping Use: Never Used Use of substances other than those prescribed or required for medical reasons: Yes Substance Use Type: Marijuana Substance Use Frequency: Occasionally Currently Displaying Signs/Symptoms of Drug Intoxication Withdrawal: No Do you feel safe in your current relationship?: No Current Relationship Advance Directives: No Advance Directives Information Provided: Yes Do you have thoughts of harming others: None Do you have a plan to hurt others: No Plan Recently lost weight without trying: No Nutrition Risks: No Nutritional Risk Patient : No : No Poor oral hygiene: No Meds Allergies Allergy/AdvReac Type Severity Reaction Status Date / Time Penicillins Allergy Hives Verified 03/13/25 13:13 Active Medications: Current Medications Acetaminophen (Acetaminophen 325 Mg Tablet) 650 mg PO Q6H PRN PRN Reason: Headache/Pain, Scale 1-10 Al Hydroxide/Mg Hydroxide (Magnesium Hydrox/Alum Hydrox 30 Ml Oral.Susp) 30 ml PO Q6H PRN PRN Reason: Heartburn/Nausea Escitalopram Oxalate (Escitalopram Oxalate 20 Mg Tablet) 20 mg PO DAILY [facility] Last Admin: 03/17/25 08:45 Dose: 20 mg Hydroxyzine HCl (Hydroxyzine Hcl 25 Mg Tablet) 25 mg PO Q6H PRN PRN Reason: mild anxiety Lamotrigine (Lamotrigine 25 Mg Tablet) 75 mg PO BEDTIME [facility] Last Admin: 03/16/25 22:43 Dose: 75 mg Lamotrigine (Lamotrigine 100 Mg Tablet) 100 mg PO DAILY [facility] Last Admin: 03/17/25 08:45 Dose: 100 mg Lorazepam (Lorazepam 1 Mg Tablet) 1 mg PO DAILY PRN PRN Reason: severe anxiety Last Admin: 03/16/25 18:44 Dose: 1 mg Magnesium Hydroxide (Milk Of Magnesia 30 Ml Oral.Susp) 30 ml PO DAILY PRN PRN Reason: Constipation Nicotine (Nicotine 21 Mg Patch.Td24) 21 mg TRANSDERMA DAILY PRN PRN Reason: smoking cessation Nicotine Polacrilex (Nicotine Polacrilex 2 Mg Gum) 4 mg BUCCAL Q2H PRN PRN Reason: Nicotine Cravings Olanzapine (Olanzapine 5 Mg Tablet) 5 mg PO TID PRN PRN Reason: agitation Trazodone HCl (Trazodone Hcl 25 Mg Halftab) 25 mg PO BEDTIME [facility] Last Admin: 03/16/25 22:43 Dose: 25 mg Trazodone HCl (Trazodone Hcl 50 Mg Tablet) 50 mg PO BEDTIME MRX1 PRN PRN Reason: Insomnia Last Admin: 03/16/25 22:55 Dose: 50 mg Home Medications ?Medication ?Instructions ?Recorded ?Confirmed ?Last Taken ?Type escitalopram oxalate 20 mg tablet 20 mg PO DAILY 03/14/25 03/14/25 03/13/25 History lamotrigine 100 mg tablet 100 mg PO BID 03/14/25 03/14/25 03/13/25 History trazodone 50 mg tablet 12.5 - 25 mg PO BEDTIME 03/14/25 03/14/25 03/12/25 History Physical Exam Vital Signs and Narrative: Vital Signs: Last Vital Signs Temp 98.1 F 03/17/25 07:55 Pulse 69 03/17/25 07:55 Resp 16 03/17/25 07:55 BP 104/57 L 03/17/25 07:55 Pulse Ox 100 03/17/25 07:55 O2 Del Method Room Air 03/17/25 07:55 BMI result Body Mass Index 24.7 CONST: Alert and oriented, in NAD. Well nourished HEENT: Normocephalic, atraumatic, MMM, Eyes clear, Neck supple RESP: Lungs clear, RRR even and regular HEART:,RRR, S1, S2. No edema GI:Abdomen Soft NT, ND. + BS times four :Deferred SKIN: Warm dry and intact, no visible lesions or rashes NEURO:CN II-XII Intact bilaterally, Sensation intact. Speech clear PSYCH: Normal affect Results Labs 03/13/25 13:55 03/17/25 08:58 Assessment and Plan (1) Suicidal ideation: Status: Acute Plan 19-year-old female with past medical history of depression presented to the ED for drug overdose after taking a handful of leave Lamictal Ativan and trazodone. She is being treated in the inpatient psychiatric unit for mood stabilization. Depression with suicidal ideation Treatment per psychiatric team Leg length discrepancy Does not bother patient no pain. Thank you for allowing me to participate in the care of this patient. Will follow as needed, please notify medical provider with any changes in condition or concerns.
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
[2025-03-17 09:24] LABS: Alanine Aminotransferase 10 U/L (0-31); Albumin Level 5.0 g/dL (3.5-5.0); Alkaline Phosphatase 44 U/L (39-117); Anion Gap 11 (12-20); Aspartate Amino Transferase 16 U/L (5-31); Blood Urea Nitrogen 14 mg/dL (9-16); Calcium 10.1 mg/dL (8.4-10.2); Carbon Dioxide 29 mmol/L (22-29); Chloride 107 mmol/L (96-108); Cholesterol 247 mg/dL (<200); Creatinine Clr Calc Pharmacy 108.1; Estimated Glomerular Filt Rate > 60; HDL Cholesterol 60 mg/dL (>40); Potassium 4.1 mmol/L (3.3-5.1); Sodium 143 mmol/L (135-145); Total Protein 6.7 g/dL (6.5-8.0); Triglycerides 57 mg/dL (<150)
[2025-03-17 09:33] LABS: Hemoglobin A1C 117.6844 umol/L; Total Hemoglobin (HGBA1C) 3502.5784 umol/L
[2025-03-17 20:00] VITALS: BP 108/55; PULSE 88; RESP 16; TEMP 36.8; O2SAT 99
[2025-03-18 08:15] VITALS: BP 111/58; PULSE 66; TEMP 37.3; O2SAT 100
--- NOTE | 2025-03-18 10:38 | HO.PSYCHPN ---
Subjective Subjective Date of Service: 03/18/25 Reason For Visit: SI Subjective Notes: Conditional Voluntary Healthcare Proxy: No Guardianship: No Medical Problems Affecting Mental Status: No Interim History: Pt well engaged in discussion today. Discussed history. Has been told she has borderline personality and autism. She is easily triggered on the unit and this is difficult for her. Reports overdose to show people how bad it is. States it would have been OK if she had -needed to take medical [facility] in 2023 after an attempt-parents responded by going away to . I don't need them to know how bad this is . Discussed lack of trust in mom-when she confided in mom she reports loss of 2 friends due to mom's interventions. Discussed the suicides of 3 childhood friends- Gregorio~1year ago, Marley~2years ago, Mylene~1.5 years ago. She was close to Mylene before -estranged from the others. States they were together a great deal in childhood with many pictures together. Also discussed parents killing childhood dog with passive emotional neglect . Pt feels she is receiving the same treatment. Questions if they care. Reports increase in pain and sx being in pt, but understands why she must work this through. DBT skills reviewed. Medication Compliance: Yes Side effects from medications: No Attending Groups: Yes Review of Systems Acute medical concerns: No Medical Review of Systems: unchanged Review of Systems Review of Systems no Mental Status Exam Mental Status Exam Patient Appearance: Appropriate Patient Orientation: Person, Place, Time and Situation Level of Consciousness: Alert Patient Behavior: Talkative and Good Eye Contact Mood Description: Depressed Affect Description: Flat Patient Cognition Impaired: No Ability to Follow Directions: Good Speech Pattern: Spontaneous Speech Memory Description: Intact Hallucinations: None Delusions: Not Present Thought Process: Rumination Thought Content: positive for Circumstantial, positive for Perseveration and positive for Suicidal Ideation Depressive Symptoms: Low Self Esteem Judgement: Poor Diagnostics Vital Signs (24Hr): Vital Signs - 24 hr 03/17/25 20:00 03/18/25 08:15 Temperature 98.3 F 99.2 F Pulse Rate 88 66 Respiratory Rate 16 Blood Pressure 108/55 L 111/58 L Pulse Oximetry 99 100 Oxygen Delivery Method Room Air Room Air BMI result Body Mass Index 24.7 Labs 03/13/25 13:55 03/17/25 08:58 Labs: Laboratory Results - last 48 hr 03/17/25 08:58 Sodium 143 Potassium 4.1 D Chloride 107 Carbon Dioxide 29 Anion Gap 11 L BUN 14 Creatinine 0.68 Estim Creat Clear Calc 108.1 Estimated GFR > 60 Random Glucose 100 Estimat Average Glucose 103 Hemoglobin A1c % 5.2 Calcium 10.1 D Total Bilirubin 0.5 AST 16 ALT 10 Alkaline Phosphatase 44 Total Protein 6.7 Albumin 5.0 Triglycerides 57 Cholesterol 247 H LDL Cholesterol, Calc 176 H HDL Cholesterol 60 Medications Medications Current Medications Acetaminophen (Acetaminophen 325 Mg Tablet) 650 mg PO Q6H PRN PRN Reason: Headache/Pain, Scale 1-10 Al Hydroxide/Mg Hydroxide (Magnesium Hydrox/Alum Hydrox 30 Ml Oral.Susp) 30 ml PO Q6H PRN PRN Reason: Heartburn/Nausea Clonidine HCl (Clonidine Hcl 0.1 Mg Tablet) 0.1 mg PO Q4H PRN; Protocol PRN Reason: moderate anxiety Escitalopram Oxalate (Escitalopram Oxalate 20 Mg Tablet) 20 mg PO DAILY [facility] Last Admin: 03/18/25 09:08 Dose: 20 mg Hydroxyzine HCl (Hydroxyzine Hcl 25 Mg Tablet) 25 mg PO Q6H PRN PRN Reason: mild anxiety Lamotrigine (Lamotrigine 25 Mg Tablet) 75 mg PO BEDTIME [facility] Last Admin: 03/17/25 22:44 Dose: 75 mg Lamotrigine (Lamotrigine 100 Mg Tablet) 100 mg PO DAILY [facility] Last Admin: 03/18/25 09:09 Dose: 100 mg Lorazepam (Lorazepam 1 Mg Tablet) 1 mg PO DAILY PRN PRN Reason: severe anxiety Last Admin: 03/16/25 18:44 Dose: 1 mg Magnesium Hydroxide (Milk Of Magnesia 30 Ml Oral.Susp) 30 ml PO DAILY PRN PRN Reason: Constipation Nicotine (Nicotine 21 Mg Patch.Td24) 21 mg TRANSDERMA DAILY PRN PRN Reason: smoking cessation Nicotine Polacrilex (Nicotine Polacrilex 2 Mg Gum) 4 mg BUCCAL Q2H PRN PRN Reason: Nicotine Cravings Olanzapine (Olanzapine 5 Mg Tablet) 5 mg PO TID PRN PRN Reason: agitation Risperidone (Risperidone 0.5 Mg Tablet) 0.5 mg PO DAILY [facility] Last Admin: 03/18/25 09:10 Dose: Not Given Trazodone HCl (Trazodone Hcl 50 Mg Tablet) 50 mg PO BEDTIME MRX1 PRN PRN Reason: Insomnia Last Admin: 03/16/25 22:55 Dose: 50 mg Trazodone HCl (Trazodone Hcl 50 Mg Tablet) 50 mg PO BEDTIME [facility] Last Admin: 03/17/25 22:45 Dose: 50 mg Allergies Allergies Allergy/AdvReac Type Severity Reaction Status Date / Time Penicillins Allergy Hives Verified 03/13/25 13:13 Assessment & Plan Assessment & Plan (1) MDD (major depressive disorder), recurrent severe, without psychosis: Status: Acute Code(s): F33.2 - Major depressive disorder, recurrent severe without psychotic features (2) Borderline personality disorder: Status: Acute Code(s): F60.3 - Borderline personality disorder Plan HPI: Pt is a 19 yo trans(-male?) They/Them, college student with PMH for MDD since childhood, Borderline PD, chronic SI, SIB, self-reports ASD who presents for intentional overdose in face of worsening depression and anxiety from relational stress. Pt reports life-long depression, that abated toward end of high-school but resurfaced last year during college and pt took a leave of absence in Spring 2024 for SI and depression. At home with parents, on Celexa and Lexapro, depression worsened and pt endorses diminished interest, energy, concentration, appetite, poor sleep, psychomotor retardation SI (very hurt by parents who were traveling left her home alone in this condition). Depression seemed to get better toward end of summer when patient was started on Lexapro (depression likely also improved since heading back to college). However, over past few weeks at school pt reports increased depression/anxiety due to relationship issues...feeling left out by friend...having more meltdowns and increasing SI thoughts...This Sunday, () patients plans changed due to conflicts...which was overwhelming; she could not stop crying... Dissociating at times...[place] friends left without her. This past week she had been having increased SI but was able to work through it until this past Sunday when issue between friends left her feeling too hurt, too abandoned to cope and went back to her dorm and took overdose; patient wanted to at first...but then realized that mostly they did not really want to but just wanted people to know how bad they were feeling; patient called friend, therapist and ambulance was called. Pt mostly glad about being alive. Denies any drug or alcohol abuse no hx of manic episodes/behaviors Formulation/clinical reasoning: History of chronic depression only partially treated by medication. This coupled with high expressed emotion and emotional reactivity, leads to chronic SI which worsens from time to time. Patient feels however that much of her struggles are due to being triggered by feeling abandoned. Patient says they are ambivalent about being alive however all there discussions are about future oriented activities such as getting back to and finishing school, graduating etc. Discussed medication management. Lamictal recently increased to 175 mg about a week ago. [employer] T[employer] agrees that this could be further titrated to 200 mg but would give it another week before doing so. Discussed antipsychotic medication, risks/side effects and patient agrees to try low-dose risperidone to help quell emotional reactivity. Plan: CV Q 15 minute checks Start risperidone 0.5 mg daily; may to b.i.d. P.r.n. clonidine ordered; may consider Intuniv Continue Lamictal 175 mg daily; titrate to 200 mg before discharge Continue Lexapro 20 mg Gather collateral 03/18: Continue tx Reason for continued inpatient stay Substantial Risk for: rapid decompensation Time Spent With Patient Time: Total time managing care of this patient today ____ minutes.
[2025-03-18 20:00] VITALS: BP 118/73; PULSE 72; RESP 18; TEMP 36.6; O2SAT 99
[2025-03-19 08:00] VITALS: BP 112/63; PULSE 82; RESP 18; TEMP 36.8; O2SAT 99
--- NOTE | 2025-03-19 14:48 | P.PNPSI_ITS ---
Subjective Subjective Date of Service: 03/19/25 Reason For Visit: SI Subjective Notes: Conditional Voluntary Healthcare Proxy: No Guardianship: No Medical Problems Affecting Mental Status: No Interim History: Pt reports feeling well today. They have been placed on medical leave by [employer] and are working on appeal. Today they met with Ladonna Ford [facility] and was able to put a plan b in place should their appeal be denied. They are looking at residential treatment programs and are willing to attend, as returning to parents home is not a healthy option. Discussed risperdal change to HS which was completed. Discussed a trial of risperdal prn 0.25 mg for trigger mgt and grounding. They agree. Today, denies SI,HI,AH,VH. Participating in milieu, with peers and with the team. Medication Compliance: Yes Side effects from medications: No Attending Groups: Yes Review of Systems Acute medical concerns: No Medical Review of Systems: unchanged Review of Systems Review of Systems I feel good today. I was able to sleep well last night. Mental Status Exam Mental Status Exam Patient Appearance: Appropriate Patient Orientation: Person, Place, Time and Situation Level of Consciousness: Alert Patient Behavior: Talkative and Good Eye Contact Mood Description: Constricted Affect Description: Constricted Patient Cognition Impaired: No Ability to Follow Directions: Good Speech Pattern: Spontaneous Speech Memory Description: Intact and Episodic Impaired Hallucinations: None Delusions: Not Present Thought Process: Intact and Goal Oriented Thought Content: positive for Intact, positive for Goal Oriented and positive for Suicidal Ideation (denies) Depressive Symptoms: Thoughts of /Suicide (denies) Judgement: Fair Diagnostics Vital Signs (24Hr): Vital Signs - 24 hr 03/18/25 20:00 03/19/25 08:00 Temperature 97.9 F 98.3 F Pulse Rate 72 82 Respiratory Rate 18 18 Blood Pressure 118/73 112/63 Pulse Oximetry 99 99 Oxygen Delivery Method Room Air Room Air BMI result Body Mass Index 24.7 Labs 03/13/25 13:55 03/17/25 08:58 Medications Medications Current Medications Acetaminophen (Acetaminophen 325 Mg Tablet) 650 mg PO Q6H PRN PRN Reason: Headache/Pain, Scale 1-10 Al Hydroxide/Mg Hydroxide (Magnesium Hydrox/Alum Hydrox 30 Ml Oral.Susp) 30 ml PO Q6H PRN PRN Reason: Heartburn/Nausea Clonidine HCl (Clonidine Hcl 0.1 Mg Tablet) 0.1 mg PO Q4H PRN; Protocol PRN Reason: moderate anxiety Escitalopram Oxalate (Escitalopram Oxalate 20 Mg Tablet) 20 mg PO DAILY [facility] Last Admin: 03/19/25 08:32 Dose: 20 mg Hydroxyzine HCl (Hydroxyzine Hcl 25 Mg Tablet) 25 mg PO Q6H PRN PRN Reason: mild anxiety Lamotrigine (Lamotrigine 25 Mg Tablet) 75 mg PO BEDTIME [facility] Last Admin: 03/18/25 21:14 Dose: 75 mg Lamotrigine (Lamotrigine 100 Mg Tablet) 100 mg PO DAILY [facility] Last Admin: 03/19/25 08:32 Dose: 100 mg Lorazepam (Lorazepam 1 Mg Tablet) 1 mg PO DAILY PRN PRN Reason: severe anxiety Last Admin: 03/16/25 18:44 Dose: 1 mg Magnesium Hydroxide (Milk Of Magnesia 30 Ml Oral.Susp) 30 ml PO DAILY PRN PRN Reason: Constipation Nicotine (Nicotine 21 Mg Patch.Td24) 21 mg TRANSDERMA DAILY PRN PRN Reason: smoking cessation Nicotine Polacrilex (Nicotine Polacrilex 2 Mg Gum) 4 mg BUCCAL Q2H PRN PRN Reason: Nicotine Cravings Olanzapine (Olanzapine 5 Mg Tablet) 5 mg PO TID PRN PRN Reason: agitation Risperidone (Risperidone 0.5 Mg Tablet) 0.5 mg PO BEDTIME [facility] Risperidone (Risperidone 0.25 Mg Tablet) 0.25 mg PO BID PRN PRN Reason: Grounding support Trazodone HCl (Trazodone Hcl 50 Mg Tablet) 50 mg PO BEDTIME MRX1 PRN PRN Reason: Insomnia Last Admin: 03/16/25 22:55 Dose: 50 mg Trazodone HCl (Trazodone Hcl 50 Mg Tablet) 50 mg PO BEDTIME [facility] Last Admin: 03/18/25 21:14 Dose: 50 mg Allergies Allergies Allergy/AdvReac Type Severity Reaction Status Date / Time Penicillins Allergy Hives Verified 03/13/25 13:13 Assessment & Plan Assessment & Plan (1) MDD (major depressive disorder), recurrent severe, without psychosis: Status: Acute Code(s): F33.2 - Major depressive disorder, recurrent severe without psychotic features (2) Borderline personality disorder: Status: Acute Code(s): F60.3 - Borderline personality disorder Plan HPI: Pt is a 19 yo trans(-male?) They/Them, college student with PMH for MDD since childhood, Borderline PD, chronic SI, SIB, self-reports ASD who presents for intentional overdose in face of worsening depression and anxiety from relational stress. Pt reports life-long depression, that abated toward end of high-school but resurfaced last year during college and pt took a leave of absence in Spring 2024 for SI and depression. At home with parents, on Celexa and Lexapro, depression worsened and pt endorses diminished interest, energy, concentration, appetite, poor sleep, psychomotor retardation SI (very hurt by parents who were traveling left her home alone in this condition). Depression seemed to get better toward end of summer when patient was started on Lexapro (depression likely also improved since heading back to college). However, over past few weeks at school pt reports increased depression/anxiety due to relationship issues...feeling left out by friend...having more meltdowns and increasing SI thoughts...This Sunday, () patients plans changed due to conflicts...which was overwhelming; she could not stop crying... Dissociating at times...[place] friends left without her. This past week she had been having increased SI but was able to work through it until this past Sunday when issue between friends left her feeling too hurt, too abandoned to cope and went back to her dorm and took overdose; patient wanted to at first...but then realized that mostly they did not really want to but just wanted people to know how bad they were feeling; patient called friend, therapist and ambulance was called. Pt mostly glad about being alive. Denies any drug or alcohol abuse no hx of manic episodes/behaviors Formulation/clinical reasoning: History of chronic depression only partially treated by medication. This coupled with high expressed emotion and emotional reactivity, leads to chronic SI which worsens from time to time. Patient feels however that much of her struggles are due to being triggered by feeling abandoned. Patient says they are ambivalent about being alive however all there discussions are about future oriented activities such as getting back to and finishing school, graduating etc. Discussed medication management. Lamictal recently increased to 175 mg about a week ago. Night Time Nanny agrees that this could be further titrated to 200 mg but would give it another week before doing so. Discussed antipsychotic medication, risks/side effects and patient agrees to try low-dose risperidone to help quell emotional reactivity. Plan: CV Q 15 minute checks Start risperidone 0.5 mg daily; may to b.i.d. P.r.n. clonidine ordered; may consider Intuniv Continue Lamictal 175 mg daily; titrate to 200 mg before discharge Continue Lexapro 20 mg Gather collateral 03/18: Continue tx 03/19: Risperdal change to Risperdal 0.25 mg bid prn for grounding support Reason for continued inpatient stay Substantial Risk for: rapid decompensation Time Spent With Patient Time: Total time managing care of this patient today ____ minutes.
[2025-03-19 20:00] VITALS: BP 129/65; PULSE 75; RESP 20; TEMP 36.3; O2SAT 100
[2025-03-20 07:56] VITALS: BP 117/71; PULSE 72; TEMP 36.2; O2SAT 100
--- NOTE | 2025-03-20 12:03 | HO.PSYCHPN ---
Subjective Subjective Date of Service: 03/20/25 Reason For Visit: SI Subjective Notes: Conditional Voluntary Healthcare Proxy: No Guardianship: No Medical Problems Affecting Mental Status: No Interim History: Pt working on appeal to [employer] [facility] with team. Letter drafted by pt. Pt did take one dose of Risperdal 0.25 mg for grounding support and found that it increased her dissociative process. This was discussed and we will change to Perphenazine 4 mg bid prn trial. Attending groups, engaged in milieu and with peers. Pt also has drafted a long letter to parents which she continues to work on today. Medication Compliance: Yes Side effects from medications: Yes Attending Groups: Yes Review of Systems Acute medical concerns: No Medical Review of Systems: unchanged Review of Systems Review of Systems Denies Mental Status Exam Mental Status Exam Patient Appearance: Appropriate Patient Orientation: Person, Place, Time and Situation Level of Consciousness: Alert Patient Behavior: Talkative and Good Eye Contact Mood Description: Constricted Affect Description: Constricted Patient Cognition Impaired: No Ability to Follow Directions: Good Speech Pattern: Spontaneous Speech Memory Description: Intact and Episodic Impaired Hallucinations: None Delusions: Not Present Thought Process: Intact and Goal Oriented Thought Content: positive for Intact, positive for Goal Oriented and positive for Suicidal Ideation (denies) Depressive Symptoms: Thoughts of /Suicide (denies) Judgement: Fair Diagnostics Vital Signs (24Hr): Vital Signs - 24 hr 03/19/25 20:00 03/20/25 07:56 Temperature 97.3 F 97.2 F Pulse Rate 75 72 Respiratory Rate 20 Blood Pressure 129/65 117/71 Pulse Oximetry 100 100 Oxygen Delivery Method Room Air Room Air BMI result Body Mass Index 24.7 Labs 03/13/25 13:55 03/17/25 08:58 Medications Medications Current Medications Acetaminophen (Acetaminophen 325 Mg Tablet) 650 mg PO Q6H PRN PRN Reason: Headache/Pain, Scale 1-10 Al Hydroxide/Mg Hydroxide (Magnesium Hydrox/Alum Hydrox 30 Ml Oral.Susp) 30 ml PO Q6H PRN PRN Reason: Heartburn/Nausea Clonidine HCl (Clonidine Hcl 0.1 Mg Tablet) 0.1 mg PO Q4H PRN; Protocol PRN Reason: moderate anxiety Escitalopram Oxalate (Escitalopram Oxalate 20 Mg Tablet) 20 mg PO DAILY [facility] Last Admin: 03/20/25 09:26 Dose: 20 mg Hydroxyzine HCl (Hydroxyzine Hcl 25 Mg Tablet) 25 mg PO Q6H PRN PRN Reason: mild anxiety Lamotrigine (Lamotrigine 25 Mg Tablet) 75 mg PO BEDTIME [facility] Last Admin: 03/19/25 21:48 Dose: 75 mg Lamotrigine (Lamotrigine 100 Mg Tablet) 100 mg PO DAILY [facility] Last Admin: 03/20/25 09:26 Dose: 100 mg Lorazepam (Lorazepam 1 Mg Tablet) 1 mg PO DAILY PRN PRN Reason: severe anxiety Last Admin: 03/16/25 18:44 Dose: 1 mg Magnesium Hydroxide (Milk Of Magnesia 30 Ml Oral.Susp) 30 ml PO DAILY PRN PRN Reason: Constipation Nicotine (Nicotine 21 Mg Patch.Td24) 21 mg TRANSDERMA DAILY PRN PRN Reason: smoking cessation Nicotine Polacrilex (Nicotine Polacrilex 2 Mg Gum) 4 mg BUCCAL Q2H PRN PRN Reason: Nicotine Cravings Olanzapine (Olanzapine 5 Mg Tablet) 5 mg PO TID PRN PRN Reason: agitation Risperidone (Risperidone 0.5 Mg Tablet) 0.5 mg PO BEDTIME [facility] Last Admin: 03/19/25 21:50 Dose: 0.5 mg Risperidone (Risperidone 0.25 Mg Tablet) 0.25 mg PO BID PRN PRN Reason: Grounding support Last Admin: 03/20/25 10:00 Dose: 0.25 mg Trazodone HCl (Trazodone Hcl 50 Mg Tablet) 50 mg PO BEDTIME MRX1 PRN PRN Reason: Insomnia Last Admin: 03/16/25 22:55 Dose: 50 mg Trazodone HCl (Trazodone Hcl 50 Mg Tablet) 50 mg PO BEDTIME [facility] Last Admin: 03/19/25 21:48 Dose: 50 mg Allergies Allergies Allergy/AdvReac Type Severity Reaction Status Date / Time Penicillins Allergy Hives Verified 03/13/25 13:13 Assessment & Plan Assessment & Plan (1) MDD (major depressive disorder), recurrent severe, without psychosis: Status: Acute Code(s): F33.2 - Major depressive disorder, recurrent severe without psychotic features (2) Borderline personality disorder: Status: Acute Code(s): F60.3 - Borderline personality disorder Plan HPI: Pt is a 19 yo trans(-male?) They/Them, college student with PMH for MDD since childhood, Borderline PD, chronic SI, SIB, self-reports ASD who presents for intentional overdose in face of worsening depression and anxiety from relational stress. Pt reports life-long depression, that abated toward end of high-school but resurfaced last year during college and pt took a leave of absence in Spring 2024 for SI and depression. At home with parents, on Celexa and Lexapro, depression worsened and pt endorses diminished interest, energy, concentration, appetite, poor sleep, psychomotor retardation SI (very hurt by parents who were traveling left her home alone in this condition). Depression seemed to get better toward end of summer when patient was started on Lexapro (depression likely also improved since heading back to college). However, over past few weeks at school pt reports increased depression/anxiety due to relationship issues...feeling left out by friend...having more meltdowns and increasing SI thoughts...This Sunday, () patients plans changed due to conflicts...which was overwhelming; she could not stop crying... Dissociating at times...[place] friends left without her. This past week she had been having increased SI but was able to work through it until this past Sunday when issue between friends left her feeling too hurt, too abandoned to cope and went back to her dorm and took overdose; patient wanted to at first...but then realized that mostly they did not really want to but just wanted people to know how bad they were feeling; patient called friend, therapist and ambulance was called. Pt mostly glad about being alive. Denies any drug or alcohol abuse no hx of manic episodes/behaviors Formulation/clinical reasoning: History of chronic depression only partially treated by medication. This coupled with high expressed emotion and emotional reactivity, leads to chronic SI which worsens from time to time. Patient feels however that much of her struggles are due to being triggered by feeling abandoned. Patient says they are ambivalent about being alive however all there discussions are about future oriented activities such as getting back to and finishing school, graduating etc. Discussed medication management. Lamictal recently increased to 175 mg about a week ago. Medical Physicist agrees that this could be further titrated to 200 mg but would give it another week before doing so. Discussed antipsychotic medication, risks/side effects and patient agrees to try low-dose risperidone to help quell emotional reactivity. Plan: CV Q 15 minute checks Start risperidone 0.5 mg daily; may to b.i.d. P.r.n. clonidine ordered; may consider Intuniv Continue Lamictal 175 mg daily; titrate to 200 mg before discharge Continue Lexapro 20 mg Gather collateral 03/18: Continue tx 03/19: Risperdal change to HS Risperdal 0.25 mg bid prn for grounding support 03/19: DC Risperdal 0.25 mg bid prn Perphenazine 4 mg bid prn for grounding support. Reason for continued inpatient stay Substantial Risk for: rapid decompensation Time Spent With Patient Time: Total time managing care of this patient today ____ minutes.
[2025-03-20] MEDS: Magnesium Hydrox/Alum Hydrox 30 ML ORAL.SUSP PO (17:46)
[2025-03-20 20:00] VITALS: BP 103/64; PULSE 78; RESP 16; TEMP 36.6; O2SAT 100
[2025-03-21 08:00] VITALS: BP 115/62; PULSE 90; RESP 18; TEMP 36.2; O2SAT 99
--- NOTE | 2025-03-21 15:55 | P.PNPSI_ITS ---
Subjective Subjective Date of Service: 03/21/25 Reason For Visit: SI Subjective Notes: Conditional Voluntary Healthcare Proxy: No Guardianship: No Medical Problems Affecting Mental Status: No Interim History: Medical record and nursing notes reviewed; case discussed during rounds with team/nursing staff, and met with patient for supportive therapy/psychoeducation, as well as medication management. Meet with patient in Group room. Reports sleep has been better. Appetite is normal. Report medication has been helpful. Denies side effects but report more dissociated after started taking PRN Risperidone yesterday morning but they were not sure neither. Being here is better environment as they get less triggers. Report anxiety a 5/10 and depression 5-7. Have good visit with family member. They are visible, attended groups, bright affect. Denies SI/SIB/HI/AVH Medication Compliance: Yes Side effects from medications: No Attending Groups: Yes Review of Systems Acute medical concerns: No Medical Review of Systems: unchanged Review of Systems Review of Systems Denies Mental Status Exam Mental Status Exam Patient Appearance: Appropriate Patient Orientation: Person, Place, Time and Situation Level of Consciousness: Alert Patient Behavior: Talkative and Good Eye Contact Mood Description: Constricted Affect Description: Constricted Patient Cognition Impaired: No Ability to Follow Directions: Good Speech Pattern: Spontaneous Speech Memory Description: Intact and Episodic Impaired Hallucinations: None Delusions: Not Present Thought Process: Intact and Goal Oriented Thought Content: positive for Intact, positive for Goal Oriented and positive for Suicidal Ideation (denies) Depressive Symptoms: Thoughts of /Suicide (denies) Judgement: Fair Diagnostics Vital Signs (24Hr): Vital Signs - 24 hr 03/20/25 20:00 03/21/25 08:00 Temperature 97.8 F 97.1 F Pulse Rate 78 90 Respiratory Rate 16 18 Blood Pressure 103/64 115/62 Pulse Oximetry 100 99 Oxygen Delivery Method Room Air Room Air BMI result Body Mass Index 24.7 Labs 03/13/25 13:55 03/17/25 08:58 Medications Medications Current Medications Acetaminophen (Acetaminophen 325 Mg Tablet) 650 mg PO Q6H PRN PRN Reason: Headache/Pain, Scale 1-10 Al Hydroxide/Mg Hydroxide (Magnesium Hydrox/Alum Hydrox 30 Ml Oral.Susp) 30 ml PO Q6H PRN PRN Reason: Heartburn/Nausea Last Admin: 03/20/25 17:46 Dose: 30 ml Clonidine HCl (Clonidine Hcl 0.1 Mg Tablet) 0.1 mg PO Q4H PRN; Protocol PRN Reason: moderate anxiety Escitalopram Oxalate (Escitalopram Oxalate 20 Mg Tablet) 20 mg PO DAILY [facility] Last Admin: 03/21/25 10:40 Dose: 20 mg Hydroxyzine HCl (Hydroxyzine Hcl 25 Mg Tablet) 25 mg PO Q6H PRN PRN Reason: mild anxiety Lamotrigine (Lamotrigine 25 Mg Tablet) 75 mg PO BEDTIME [facility] Last Admin: 03/20/25 21:59 Dose: 75 mg Lamotrigine (Lamotrigine 100 Mg Tablet) 100 mg PO DAILY [facility] Last Admin: 03/21/25 10:40 Dose: 100 mg Lorazepam (Lorazepam 1 Mg Tablet) 1 mg PO DAILY PRN PRN Reason: severe anxiety Last Admin: 03/16/25 18:44 Dose: 1 mg Magnesium Hydroxide (Milk Of Magnesia 30 Ml Oral.Susp) 30 ml PO DAILY PRN PRN Reason: Constipation Nicotine (Nicotine 21 Mg Patch.Td24) 21 mg TRANSDERMA DAILY PRN PRN Reason: smoking cessation Nicotine Polacrilex (Nicotine Polacrilex 2 Mg Gum) 4 mg BUCCAL Q2H PRN PRN Reason: Nicotine Cravings Olanzapine (Olanzapine 5 Mg Tablet) 5 mg PO TID PRN PRN Reason: agitation Perphenazine (Perphenazine 4 Mg Tablet) 4 mg PO BID PRN PRN Reason: grounding support Risperidone (Risperidone 0.5 Mg Tablet) 0.5 mg PO BEDTIME [facility] Last Admin: 03/20/25 21:59 Dose: 0.5 mg Trazodone HCl (Trazodone Hcl 50 Mg Tablet) 50 mg PO BEDTIME MRX1 PRN PRN Reason: Insomnia Last Admin: 03/16/25 22:55 Dose: 50 mg Trazodone HCl (Trazodone Hcl 50 Mg Tablet) 50 mg PO BEDTIME [facility] Last Admin: 03/20/25 21:59 Dose: 50 mg Allergies Allergies Allergy/AdvReac Type Severity Reaction Status Date / Time Penicillins Allergy Hives Verified 03/13/25 13:13 Assessment & Plan Assessment & Plan (1) MDD (major depressive disorder), recurrent severe, without psychosis: Status: Acute Code(s): F33.2 - Major depressive disorder, recurrent severe without psychotic features (2) Borderline personality disorder: Status: Acute Code(s): F60.3 - Borderline personality disorder Plan HPI: Pt is a 19 yo trans(-male?) They/Them, college student with PMH for MDD since childhood, Borderline PD, chronic SI, SIB, self-reports ASD who presents for intentional overdose in face of worsening depression and anxiety from relational stress. Pt reports life-long depression, that abated toward end of high-school but resurfaced last year during college and pt took a leave of absence in Spring 2024 for SI and depression. At home with parents, on Celexa and Lexapro, depression worsened and pt endorses diminished interest, energy, concentration, appetite, poor sleep, psychomotor retardation SI (very hurt by parents who were traveling left her home alone in this condition). Depression seemed to get better toward end of summer when patient was started on Lexapro (depression likely also improved since heading back to college). However, over past few weeks at school pt reports increased depression/anxiety due to relationship issues...feeling left out by friend...having more meltdowns and increasing SI thoughts...This Sunday, () patients plans changed due to conflicts...which was overwhelming; she could not stop crying... Dissociating at times...[place] friends left without her. This past week she had been having increased SI but was able to work through it until this past Sunday when issue between friends left her feeling too hurt, too abandoned to cope and went back to her dorm and took overdose; patient wanted to at first...but then realized that mostly they did not really want to but just wanted people to know how bad they were feeling; patient called friend, therapist and ambulance was called. Pt mostly glad about being alive. Denies any drug or alcohol abuse no hx of manic episodes/behaviors Formulation/clinical reasoning: History of chronic depression only partially treated by medication. This coupled with high expressed emotion and emotional reactivity, leads to chronic SI which worsens from time to time. Patient feels however that much of her struggles are due to being triggered by feeling abandoned. Patient says they are ambivalent about being alive however all there discussions are about future oriented activities such as getting back to and finishing school, graduating etc. Discussed medication management. Lamictal recently increased to 175 mg about a week ago. Lepidopterist agrees that this could be further titrated to 200 mg but would give it another week before doing so. Discussed antipsychotic medication, risks/side effects and patient agrees to try low-dose risperidone to help quell emotional reactivity. Plan: CV Q 15 minute checks Start risperidone 0.5 mg daily; may to b.i.d. P.r.n. clonidine ordered; may consider Intuniv Continue Lamictal 175 mg daily; titrate to 200 mg before discharge Continue Lexapro 20 mg Gather collateral 03/18: Continue tx 03/19: Risperdal change to HS Risperdal 0.25 mg bid prn for grounding support 03/19: DC Risperdal 0.25 mg bid prn Perphenazine 4 mg bid prn for grounding support. 03/21/25: Meet with patient in Group room. Reports sleep has been better. Appetite is normal. Report medication has been helpful. Denies side effects but report more dissociated after started taking PRN Risperidone yesterday morning but they were not sure neither. Being here is better environment as they get less triggers. Report anxiety a 5/10 and depression 5-7. Have good visit with family member. They are visible, attended groups, bright affect,slept for 7 hours. Patient educated on: medication risk/benefits and therapeutic strategies Informed Consent: understands and further education needed Reason for continued inpatient stay Substantial Risk for: med/psych decompensation Time Spent With Patient Time: Total time managing care of this patient today ____ minutes.
[2025-03-21 19:38] VITALS: BP 108/58; PULSE 68; RESP 16; TEMP 36.6; O2SAT 98
[2025-03-22 08:00] VITALS: BP 109/55; PULSE 66; RESP 16; TEMP 36.4; O2SAT 98
--- NOTE | 2025-03-22 17:54 | P.PNPSI_ITS ---
Subjective Subjective Date of Service: 03/22/25 Reason For Visit: SI Subjective Notes: Conditional Voluntary Healthcare Proxy: No Guardianship: No Medical Problems Affecting Mental Status: No Interim History: Medical record and nursing notes reviewed; case discussed during rounds with team/nursing staff, and met with patient for supportive therapy/psychoeducation, as well as medication management. Patient slept for 7 hours, visible, attended groups, included fresh air, appropriate. Appear bright, congruent with mood. Reports anxiety and depression are normal baseline. Compliant with medication, denies side effects, no extra or more than normal dissociated. Patient has a best friend visiting today. Resting in bed in the afternoon using weighted blanket Medication Compliance: Yes Side effects from medications: No Attending Groups: Yes Review of Systems Acute medical concerns: No Medical Review of Systems: unchanged Review of Systems Review of Systems Denies Mental Status Exam Mental Status Exam Patient Appearance: Appropriate Patient Orientation: Person, Place, Time and Situation Level of Consciousness: Alert Patient Behavior: Talkative and Good Eye Contact Mood Description: Constricted Affect Description: Constricted Patient Cognition Impaired: No Ability to Follow Directions: Good Speech Pattern: Spontaneous Speech Memory Description: Intact and Episodic Impaired Hallucinations: None Delusions: Not Present Thought Process: Intact and Goal Oriented Thought Content: positive for Intact, positive for Goal Oriented and positive for Suicidal Ideation (denies) Depressive Symptoms: Thoughts of /Suicide (denies) Judgement: Fair Diagnostics Vital Signs (24Hr): Vital Signs - 24 hr 03/21/25 19:38 03/22/25 08:00 Temperature 97.9 F 97.6 F Pulse Rate 68 66 Respiratory Rate 16 16 Blood Pressure 108/58 L 109/55 L Pulse Oximetry 98 98 Oxygen Delivery Method Room Air Room Air BMI result Body Mass Index 24.7 Labs 03/13/25 13:55 03/17/25 08:58 Medications Medications Current Medications Acetaminophen (Acetaminophen 325 Mg Tablet) 650 mg PO Q6H PRN PRN Reason: Headache/Pain, Scale 1-10 Al Hydroxide/Mg Hydroxide (Magnesium Hydrox/Alum Hydrox 30 Ml Oral.Susp) 30 ml PO Q6H PRN PRN Reason: Heartburn/Nausea Last Admin: 03/20/25 17:46 Dose: 30 ml Clonidine HCl (Clonidine Hcl 0.1 Mg Tablet) 0.1 mg PO Q4H PRN; Protocol PRN Reason: moderate anxiety Escitalopram Oxalate (Escitalopram Oxalate 20 Mg Tablet) 20 mg PO DAILY [facility] Last Admin: 03/22/25 08:34 Dose: 20 mg Hydroxyzine HCl (Hydroxyzine Hcl 25 Mg Tablet) 25 mg PO Q6H PRN PRN Reason: mild anxiety Lamotrigine (Lamotrigine 25 Mg Tablet) 75 mg PO BEDTIME [facility] Last Admin: 03/21/25 21:50 Dose: 75 mg Lamotrigine (Lamotrigine 100 Mg Tablet) 100 mg PO DAILY [facility] Last Admin: 03/22/25 08:34 Dose: 100 mg Lorazepam (Lorazepam 1 Mg Tablet) 1 mg PO DAILY PRN PRN Reason: severe anxiety Last Admin: 03/16/25 18:44 Dose: 1 mg Magnesium Hydroxide (Milk Of Magnesia 30 Ml Oral.Susp) 30 ml PO DAILY PRN PRN Reason: Constipation Nicotine (Nicotine 21 Mg Patch.Td24) 21 mg TRANSDERMA DAILY PRN PRN Reason: smoking cessation Nicotine Polacrilex (Nicotine Polacrilex 2 Mg Gum) 4 mg BUCCAL Q2H PRN PRN Reason: Nicotine Cravings Olanzapine (Olanzapine 5 Mg Tablet) 5 mg PO TID PRN PRN Reason: agitation Perphenazine (Perphenazine 4 Mg Tablet) 4 mg PO BID PRN PRN Reason: grounding support Last Admin: 03/22/25 10:51 Dose: 4 mg Risperidone (Risperidone 0.5 Mg Tablet) 0.5 mg PO BEDTIME [facility] Last Admin: 03/21/25 21:50 Dose: 0.5 mg Trazodone HCl (Trazodone Hcl 50 Mg Tablet) 50 mg PO BEDTIME MRX1 PRN PRN Reason: Insomnia Last Admin: 03/16/25 22:55 Dose: 50 mg Trazodone HCl (Trazodone Hcl 50 Mg Tablet) 50 mg PO BEDTIME [facility] Last Admin: 03/21/25 22:38 Dose: 50 mg Allergies Allergies Allergy/AdvReac Type Severity Reaction Status Date / Time Penicillins Allergy Hives Verified 03/13/25 13:13 Assessment & Plan Assessment & Plan (1) MDD (major depressive disorder), recurrent severe, without psychosis: Status: Acute Code(s): F33.2 - Major depressive disorder, recurrent severe without psychotic features (2) Borderline personality disorder: Status: Acute Code(s): F60.3 - Borderline personality disorder Plan HPI: Pt is a 19 yo trans(-male?) They/Them, college student with PMH for MDD since childhood, Borderline PD, chronic SI, SIB, self-reports ASD who presents for intentional overdose in face of worsening depression and anxiety from relational stress. Pt reports life-long depression, that abated toward end of high-school but resurfaced last year during college and pt took a leave of absence in Spring 2024 for SI and depression. At home with parents, on Celexa and Lexapro, depression worsened and pt endorses diminished interest, energy, concentration, appetite, poor sleep, psychomotor retardation SI (very hurt by parents who were traveling left her home alone in this condition). Depression seemed to get better toward end of summer when patient was started on Lexapro (depression likely also improved since heading back to college). However, over past few weeks at school pt reports increased depression/anxiety due to relationship issues...feeling left out by friend...having more meltdowns and increasing SI thoughts...This Sunday, () patients plans changed due to conflicts...which was overwhelming; she could not stop crying... Dissociating at times...[place] friends left without her. This past week she had been having increased SI but was able to work through it until this past Sunday when issue between friends left her feeling too hurt, too abandoned to cope and went back to her dorm and took overdose; patient wanted to at first...but then realized that mostly they did not really want to but just wanted people to know how bad they were feeling; patient called friend, therapist and ambulance was called. Pt mostly glad about being alive. Denies any drug or alcohol abuse no hx of manic episodes/behaviors Formulation/clinical reasoning: History of chronic depression only partially treated by medication. This coupled with high expressed emotion and emotional reactivity, leads to chronic SI which worsens from time to time. Patient feels however that much of her struggles are due to being triggered by feeling abandoned. Patient says they are ambivalent about being alive however all there discussions are about future oriented activities such as getting back to and finishing school, graduating etc. Discussed medication management. Lamictal recently increased to 175 mg about a week ago. Financial Reporting Consultant agrees that this could be further titrated to 200 mg but would give it another week before doing so. Discussed antipsychotic medication, risks/side effects and patient agrees to try low-dose risperidone to help quell emotional reactivity. Plan: CV Q 15 minute checks Start risperidone 0.5 mg daily; may to b.i.d. P.r.n. clonidine ordered; may consider Intuniv Continue Lamictal 175 mg daily; titrate to 200 mg before discharge Continue Lexapro 20 mg Gather collateral 03/18: Continue tx 03/19: Risperdal change to HS Risperdal 0.25 mg bid prn for grounding support 03/19: DC Risperdal 0.25 mg bid prn Perphenazine 4 mg bid prn for grounding support. 03/21/25: Meet with patient in Group room. Reports sleep has been better. Appetite is normal. Report medication has been helpful. Denies side effects but report more dissociated after started taking PRN Risperidone yesterday morning but they were not sure neither. Being here is better environment as they get less triggers. Report anxiety a 5/10 and depression 5-7. Have good visit with family member. They are visible, attended groups, bright affect,slept for 7 hours. 03/22/25: Patient slept for 7 hours, visible, attended groups, included fresh air, appropriate. Appear bright, congruent with mood. Reports anxiety and depression are normal baseline. Compliant with medication, denies side effects, no extra or more than normal dissociated. Patient has a best friend visiting today. Resting in bed in the afternoon using weighted blanket Patient educated on: diagnosis, medication risk/benefits and therapeutic strategies Informed Consent: understands and further education needed Reason for continued inpatient stay Substantial Risk for: med/psych decompensation Time Spent With Patient Time: Total time managing care of this patient today ____ minutes.
[2025-03-22 19:37] VITALS: BP 118/61; PULSE 66; RESP 15; TEMP 36.6; O2SAT 99
[2025-03-23 08:00] VITALS: BP 103/61; PULSE 64; RESP 18; TEMP 37; O2SAT 97
--- NOTE | 2025-03-23 08:57 | HO.PSYCHPN ---
Subjective Subjective Date of Service: 03/23/25 Reason For Visit: SI Interim History: Met with patient; discussed with team; reviewed chart Overall feeling much better, stable, sleeping well. Pt reports no SI and none over the weekend. Some dissociative moments. Discussed medications and how the prn risperdal worsened dissociative experience but that Perphenazine helped mellow them out. Pt agreed to lower perphenazine to 2mg and schedule it and leave the other as a prn. Discussed discharge options and pt feels they might not be ready to go back to school (in process of waiting for an appeal) given triggers there. Instead of school, pt wants to go to a residential place; they are hoping that after residential they might go back to their parents, though pt has some trepidation about being at home with parents. Mental Status Exam Mental Status Exam Narrative: Pt is alert and oriented; behavior is cooperative, friendly and calm; patient is not in distress; dressed in casual attire with unkempt hair but adequate hygiene; mood is described as better and affect congruent, bright, calm; eye contact appropriate; Speech is normal rate, volume and prosody and not pressured; no psychomotor agitation/retardation present; thought process is organized and goal directed; Thought content is on tx; otherwise pertinent to relevant topics and without any delusional content, paranoid ideations or grandiosity; denies any SI/HI. Denies AVH and there is no evidence of perceptual disturbance. Patients insight and judgment appear intact. Diagnostics Vital Signs (24Hr): Vital Signs - 24 hr 03/22/25 19:37 03/23/25 08:00 Temperature 97.9 F 98.6 F Pulse Rate 66 64 Respiratory Rate 15 18 Blood Pressure 118/61 103/61 Pulse Oximetry 99 97 Oxygen Delivery Method Room Air BMI result Body Mass Index 24.7 Labs 03/13/25 13:55 03/17/25 08:58 Medications Medications Current Medications Acetaminophen (Acetaminophen 325 Mg Tablet) 650 mg PO Q6H PRN PRN Reason: Headache/Pain, Scale 1-10 Al Hydroxide/Mg Hydroxide (Magnesium Hydrox/Alum Hydrox 30 Ml Oral.Susp) 30 ml PO Q6H PRN PRN Reason: Heartburn/Nausea Last Admin: 03/20/25 17:46 Dose: 30 ml Clonidine HCl (Clonidine Hcl 0.1 Mg Tablet) 0.1 mg PO Q4H PRN; Protocol PRN Reason: moderate anxiety Escitalopram Oxalate (Escitalopram Oxalate 20 Mg Tablet) 20 mg PO DAILY [facility] Last Admin: 03/23/25 08:25 Dose: 20 mg Hydroxyzine HCl (Hydroxyzine Hcl 25 Mg Tablet) 25 mg PO Q6H PRN PRN Reason: mild anxiety Lamotrigine (Lamotrigine 25 Mg Tablet) 75 mg PO BEDTIME [facility] Last Admin: 03/22/25 20:52 Dose: 75 mg Lamotrigine (Lamotrigine 100 Mg Tablet) 100 mg PO DAILY [facility] Last Admin: 03/23/25 08:25 Dose: 100 mg Lorazepam (Lorazepam 1 Mg Tablet) 1 mg PO DAILY PRN PRN Reason: severe anxiety Last Admin: 03/16/25 18:44 Dose: 1 mg Magnesium Hydroxide (Milk Of Magnesia 30 Ml Oral.Susp) 30 ml PO DAILY PRN PRN Reason: Constipation Nicotine (Nicotine 21 Mg Patch.Td24) 21 mg TRANSDERMA DAILY PRN PRN Reason: smoking cessation Nicotine Polacrilex (Nicotine Polacrilex 2 Mg Gum) 4 mg BUCCAL Q2H PRN PRN Reason: Nicotine Cravings Olanzapine (Olanzapine 5 Mg Tablet) 5 mg PO TID PRN PRN Reason: agitation Perphenazine (Perphenazine 4 Mg Tablet) 4 mg PO BID PRN PRN Reason: grounding support Last Admin: 03/22/25 10:51 Dose: 4 mg Risperidone (Risperidone 0.5 Mg Tablet) 0.5 mg PO BEDTIME [facility] Last Admin: 03/22/25 20:54 Dose: 0.5 mg Trazodone HCl (Trazodone Hcl 50 Mg Tablet) 50 mg PO BEDTIME MRX1 PRN PRN Reason: Insomnia Last Admin: 03/16/25 22:55 Dose: 50 mg Trazodone HCl (Trazodone Hcl 50 Mg Tablet) 50 mg PO BEDTIME [facility] Last Admin: 03/22/25 20:53 Dose: 50 mg Allergies Allergies Allergy/AdvReac Type Severity Reaction Status Date / Time Penicillins Allergy Hives Verified 03/13/25 13:13 Assessment & Plan Assessment & Plan (1) MDD (major depressive disorder), recurrent severe, without psychosis: Status: Acute Code(s): F33.2 - Major depressive disorder, recurrent severe without psychotic features (2) Borderline personality disorder: Status: Acute Code(s): F60.3 - Borderline personality disorder Plan HPI: Pt is a 19 yo trans(-male?) They/Them, college student with PMH for MDD since childhood, Borderline PD, chronic SI, SIB, self-reports ASD who presents for intentional overdose in face of worsening depression and anxiety from relational stress. Pt reports life-long depression, that abated toward end of high-school but resurfaced last year during college and pt took a leave of absence in Spring 2024 for SI and depression. At home with parents, on Celexa and Lexapro, depression worsened and pt endorses diminished interest, energy, concentration, appetite, poor sleep, psychomotor retardation SI (very hurt by parents who were traveling left her home alone in this condition). Depression seemed to get better toward end of summer when patient was started on Lexapro (depression likely also improved since heading back to college). However, over past few weeks at school pt reports increased depression/anxiety due to relationship issues...feeling left out by friend...having more meltdowns and increasing SI thoughts...This Sunday, () patients plans changed due to conflicts...which was overwhelming; she could not stop crying... Dissociating at times...[place] friends left without her. This past week she had been having increased SI but was able to work through it until this past Sunday when issue between friends left her feeling too hurt, too abandoned to cope and went back to her dorm and took overdose; patient wanted to at first...but then realized that mostly they did not really want to but just wanted people to know how bad they were feeling; patient called friend, therapist and ambulance was called. Pt mostly glad about being alive. Denies any drug or alcohol abuse no hx of manic episodes/behaviors Hospital course/Formulation/clinical reasoning: History of chronic depression only partially treated by medication. This coupled with high expressed emotion and emotional reactivity, leads to chronic SI which worsens from time to time. Patient feels however that much of her struggles are due to being triggered by feeling abandoned. Patient says they are ambivalent about being alive however all there discussions are about future oriented activities such as getting back to and finishing school, graduating etc. Discussed medication management. Lamictal recently increased to 175 mg about a week ago. Toolroom Clerk agrees that this could be further titrated to 200 mg but would give it another week before doing so. Discussed antipsychotic medication, risks/side effects of antipsychotics and patient agrees to try low-dose risperidone to help quell emotional reactivity. 03/18: Continue tx 03/19: Risperdal change to HS Risperdal 0.25 mg bid prn for grounding support 03/19: DC Risperdal 0.25 mg bid prn Perphenazine 4 mg bid prn for grounding support. 03/21/25: Meet with patient in Group room. Reports sleep has been better. Appetite is normal. Report medication has been helpful. Denies side effects but report more dissociated after started taking PRN Risperidone yesterday morning but they were not sure neither. Being here is better environment as they get less triggers. Report anxiety a 5/10 and depression 5-7. Have good visit with family member. They are visible, attended groups, bright affect,slept for 7 hours. 03/22/25: Patient slept for 7 hours, visible, attended groups, included fresh air, appropriate. Appear bright, congruent with mood. Reports anxiety and depression are normal baseline. Compliant with medication, denies side effects, no extra or more than normal dissociated. Patient has a best friend visiting today. Resting in bed in the afternoon using weighted blanket 03/23 Overall feeling much better, stable, sleeping well. Pt reports no SI and none over the weekend. Some dissociative moments. Discussed medications and how the prn risperdal worsened dissociative experience but that Perphenazine helped mellow them out. Pt agreed to lower perphenazine to 2mg and schedule it and leave the other as a prn. Discussed discharge options and pt feels they might not be ready to go back to school (in process of waiting for an appeal) given triggers there. Instead of school, pt wants to go to a residential place; they are hoping that after residential they might go back to their parents, though pt has some trepidation about being at home with parents. Plan: CV Q 15 minute checks DC risperidone starting on Perphenazine 2mg daily (with prn available) P.r.n. clonidine ordered; may consider Intuniv Continue Lamictal 175 mg daily; titrate to 200 mg before discharge Continue Lexapro 20 mg Gather collateral Patient educated on: diagnosis, medication risk/benefits and therapeutic strategies Informed Consent: understands Reason for continued inpatient stay Substantial Risk for: stable for discharge Time Spent With Patient Time: Total time managing care of this patient today ____ minutes.
[2025-03-23 20:00] VITALS: BP 117/60; PULSE 82; RESP 18; TEMP 36.4; O2SAT 100
[2025-03-24 08:00] VITALS: BP 106/53; PULSE 60; RESP 20; TEMP 36.8; O2SAT 99
[2025-03-24 10:54] VITALS: BP 135/63
--- NOTE | 2025-03-24 16:25 | HO.PSYCHPN ---
Subjective Subjective Date of Service: 03/24/25 Reason For Visit: SI Interim History: Met with patient; discussed with team Patient reports that she still depressed but overall remains feeling better; no SI. Discussed medications at length and patient feels that both Risperdal and Perphenazine made her brain foggy... And did not really help reduce any dissociative episodes or help her feel more emotionally stable; also discussed Abilify. discussed other options to help with anxiety and patient decided to try Intuniv (reviewed risks/side-effects). Also discussed lithium as something to keep in mind however patient and board writer agree that this can be further discussed with outpatient provider Mental Status Exam Mental Status Exam Narrative: Pt is alert and oriented; behavior is cooperative, friendly and calm; patient is not in distress; dressed in casual attire with hair; adequate hygiene and grooming; mood is described as ok and affect congruent, bright, calm; eye contact appropriate; Speech is normal rate, volume and prosody and not pressured; no psychomotor agitation/retardation present; thought process is organized and goal directed; Thought content is on tx; otherwise pertinent to relevant topics and without any delusional content, paranoid ideations or grandiosity; denies any SI/HI. Denies AVH and there is no evidence of perceptual disturbance. Patients insight and judgment are fair. Diagnostics Vital Signs (24Hr): Vital Signs - 24 hr 03/23/25 20:00 03/24/25 08:00 03/24/25 10:54 Temperature 97.5 F 98.2 F Pulse Rate 82 60 Respiratory Rate 18 20 Blood Pressure 117/60 106/53 L 135/63 Pulse Oximetry 100 99 Oxygen Delivery Method Room Air Room Air BMI result Body Mass Index 24.7 Labs 03/13/25 13:55 03/17/25 08:58 Medications Medications Current Medications Acetaminophen (Acetaminophen 325 Mg Tablet) 650 mg PO Q6H PRN PRN Reason: Headache/Pain, Scale 1-10 Al Hydroxide/Mg Hydroxide (Magnesium Hydrox/Alum Hydrox 30 Ml Oral.Susp) 30 ml PO Q6H PRN PRN Reason: Heartburn/Nausea Last Admin: 03/20/25 17:46 Dose: 30 ml Clonidine HCl (Clonidine Hcl 0.1 Mg Tablet) 0.1 mg PO Q4H PRN; Protocol PRN Reason: moderate anxiety Last Admin: 03/24/25 10:54 Dose: 0.1 mg Escitalopram Oxalate (Escitalopram Oxalate 20 Mg Tablet) 20 mg PO DAILY [facility] Last Admin: 03/24/25 08:40 Dose: 20 mg Hydroxyzine HCl (Hydroxyzine Hcl 25 Mg Tablet) 25 mg PO Q6H PRN PRN Reason: mild anxiety Lamotrigine (Lamotrigine 25 Mg Tablet) 75 mg PO BEDTIME [facility] Last Admin: 03/23/25 21:53 Dose: 75 mg Lamotrigine (Lamotrigine 100 Mg Tablet) 100 mg PO DAILY [facility] Last Admin: 03/24/25 08:40 Dose: 100 mg Lorazepam (Lorazepam 1 Mg Tablet) 1 mg PO DAILY PRN PRN Reason: severe anxiety Last Admin: 03/16/25 18:44 Dose: 1 mg Magnesium Hydroxide (Milk Of Magnesia 30 Ml Oral.Susp) 30 ml PO DAILY PRN PRN Reason: Constipation Nicotine (Nicotine 21 Mg Patch.Td24) 21 mg TRANSDERMA DAILY PRN PRN Reason: smoking cessation Nicotine Polacrilex (Nicotine Polacrilex 2 Mg Gum) 4 mg BUCCAL Q2H PRN PRN Reason: Nicotine Cravings Perphenazine (Perphenazine 2 Mg Tablet) 2 mg PO DAILY [facility] Last Admin: 03/24/25 08:42 Dose: 2 mg Perphenazine (Perphenazine 2 Mg Tablet) 2 mg PO BID PRN PRN Reason: grounding support Trazodone HCl (Trazodone Hcl 50 Mg Tablet) 50 mg PO BEDTIME MRX1 PRN PRN Reason: Insomnia Last Admin: 03/16/25 22:55 Dose: 50 mg Trazodone HCl (Trazodone Hcl 50 Mg Tablet) 50 mg PO BEDTIME [facility] Last Admin: 03/23/25 21:58 Dose: 50 mg Allergies Allergies Allergy/AdvReac Type Severity Reaction Status Date / Time Penicillins Allergy Hives Verified 03/13/25 13:13 Assessment & Plan Assessment & Plan (1) MDD (major depressive disorder), recurrent severe, without psychosis: Status: Acute Code(s): F33.2 - Major depressive disorder, recurrent severe without psychotic features (2) Borderline personality disorder: Status: Acute Code(s): F60.3 - Borderline personality disorder Plan HPI: Pt is a 19 yo trans(-male?) They/Them, college student with PMH for MDD since childhood, Borderline PD, chronic SI, SIB, self-reports ASD who presents for intentional overdose in face of worsening depression and anxiety from relational stress. Pt reports life-long depression, that abated toward end of high-school but resurfaced last year during college and pt took a leave of absence in Spring 2024 for SI and depression. At home with parents, on Celexa and Lexapro, depression worsened and pt endorses diminished interest, energy, concentration, appetite, poor sleep, psychomotor retardation SI (very hurt by parents who were traveling left her home alone in this condition). Depression seemed to get better toward end of summer when patient was started on Lexapro (depression likely also improved since heading back to college). However, over past few weeks at school pt reports increased depression/anxiety due to relationship issues...feeling left out by friend...having more meltdowns and increasing SI thoughts...This Sunday, () patients plans changed due to conflicts...which was overwhelming; she could not stop crying... Dissociating at times...[place] friends left without her. This past week she had been having increased SI but was able to work through it until this past Sunday when issue between friends left her feeling too hurt, too abandoned to cope and went back to her dorm and took overdose; patient wanted to at first...but then realized that mostly they did not really want to but just wanted people to know how bad they were feeling; patient called friend, therapist and ambulance was called. Pt mostly glad about being alive. Denies any drug or alcohol abuse no hx of manic episodes/behaviors Hospital course/Formulation/clinical reasoning: History of chronic depression only partially treated by medication. This coupled with high expressed emotion and emotional reactivity, leads to chronic SI which worsens from time to time. Patient feels however that much of her struggles are due to being triggered by feeling abandoned. Patient says they are ambivalent about being alive however all there discussions are about future oriented activities such as getting back to and finishing school, graduating etc. Discussed medication management. Lamictal recently increased to 175 mg about a week ago. Crop Roller agrees that this could be further titrated to 200 mg but would give it another week before doing so. Discussed antipsychotic medication, risks/side effects of antipsychotics and patient agrees to try low-dose risperidone to help quell emotional reactivity. 03/18: Continue tx 03/19: Risperdal change to HS Risperdal 0.25 mg bid prn for grounding support 03/19: DC Risperdal 0.25 mg bid prn Perphenazine 4 mg bid prn for grounding support. 03/21/25: Meet with patient in Group room. Reports sleep has been better. Appetite is normal. Report medication has been helpful. Denies side effects but report more dissociated after started taking PRN Risperidone yesterday morning but they were not sure neither. Being here is better environment as they get less triggers. Report anxiety a 5/10 and depression 5-7. Have good visit with family member. They are visible, attended groups, bright affect,slept for 7 hours. 03/22/25: Patient slept for 7 hours, visible, attended groups, included fresh air, appropriate. Appear bright, congruent with mood. Reports anxiety and depression are normal baseline. Compliant with medication, denies side effects, no extra or more than normal dissociated. Patient has a best friend visiting today. Resting in bed in the afternoon using weighted blanket 03/23 Overall feeling much better, stable, sleeping well. Pt reports no SI and none over the weekend. Some dissociative moments. Discussed medications and how the prn risperdal worsened dissociative experience but that Perphenazine helped mellow them out. Pt agreed to lower perphenazine to 2mg and schedule it and leave the other as a prn. Discussed discharge options and pt feels they might not be ready to go back to school (in process of waiting for an appeal) given triggers there. Instead of school, pt wants to go to a residential place; they are hoping that after residential they might go back to their parents, though pt has some trepidation about being at home with parents. 03/24 Patient reports that she still depressed but overall remains feeling better; no SI. Discussed medications at length and patient feels that both Risperdal and Perphenazine made her brain foggy... And did not really help reduce any dissociative episodes or help her feel more emotionally stable; also discussed Abilify. discussed other options to help with anxiety and patient decided to try Intuniv (reviewed risks/side-effects). Patient did try clonidine as a p.r.n. which did seem helpful. Also discussed lithium as something to keep in mind however patient and board writer agree that this can be further discussed with outpatient provider especially as patient feels that depressive episodes are more situational and triggered by events rather than simply organic. They however agreed to increasing Lamictal Plan: CV Q 15 minute checks Start Intuniv 1 mg daily DC risperidone DC Perphenazine P.r.n. clonidine ordered; may consider Intuniv Continue Lamictal 175 mg daily; titrate to 200 mg before discharge Continue Lexapro 20 mg Clonidine p.r.n. Gather collateral Medication trials during this admission Risperidone: brain is fog not helpful Perphenazine; brain is fog; not helpful Patient educated on: diagnosis, medication risk/benefits and therapeutic strategies Informed Consent: understands Reason for continued inpatient stay Substantial Risk for: stable for discharge Time Spent With Patient Time: Total time managing care of this patient today ____ minutes.
[2025-03-24] MEDS: Magnesium Hydrox/Alum Hydrox 30 ML ORAL.SUSP PO (18:03)
[2025-03-24 20:00] VITALS: BP 103/58; PULSE 65; RESP 18; TEMP 36.8; O2SAT 98
[2025-03-25] MEDS: guanFACINE HCl ER 1 MG TAB.ER.24H PO ×2 (07:58→14:37)
[2025-03-25 08:00] VITALS: BP 104/59; PULSE 63; RESP 18; TEMP 36.8; O2SAT 98
--- NOTE | 2025-03-25 09:37 | HO.PSYCHPN ---
Subjective Subjective Date of Service: 03/25/25 Reason For Visit: SI Interim History: Met with patient; discussed with team Patient reports she is doing okay but is feeling sad and anxious since she has to go home for 2 weeks before she is able to go to a residential program. She feels she will be able to tolerate it because her father who was prime trigger, will not be there; she says she and her mom were able to coexist. Discussed medications and patient will try a higher dose of Intuniv. She thinks she will get a locked box just to help her get some additional help during times of emotional impulsivity. Patient says she knows that she will get through this time even though he feels overwhelming at the moment. She shared some of her goals and plans in her life which she aims to achieve. Diagnostics Vital Signs (24Hr): Vital Signs - 24 hr 03/24/25 10:54 03/24/25 20:00 03/25/25 08:00 Temperature 98.2 F 98.2 F Pulse Rate 65 63 Respiratory Rate 18 18 Blood Pressure 135/63 103/58 L 104/59 L Pulse Oximetry 98 98 Oxygen Delivery Method Room Air Room Air BMI result Body Mass Index 24.7 Labs 03/13/25 13:55 03/17/25 08:58 Medications Medications Current Medications Acetaminophen (Acetaminophen 325 Mg Tablet) 650 mg PO Q6H PRN PRN Reason: Headache/Pain, Scale 1-10 Al Hydroxide/Mg Hydroxide (Magnesium Hydrox/Alum Hydrox 30 Ml Oral.Susp) 30 ml PO Q6H PRN PRN Reason: Heartburn/Nausea Last Admin: 03/24/25 18:03 Dose: 30 ml Clonidine HCl (Clonidine Hcl 0.1 Mg Tablet) 0.1 mg PO Q4H PRN; Protocol PRN Reason: moderate anxiety Last Admin: 03/24/25 10:54 Dose: 0.1 mg Escitalopram Oxalate (Escitalopram Oxalate 20 Mg Tablet) 20 mg PO DAILY [facility] Last Admin: 03/25/25 07:58 Dose: 20 mg Guanfacine HCl (Guanfacine Hcl Er 1 Mg Tab.Er.24h) 1 mg PO DAILY [facility]ON[facility] Last Admin: 03/25/25 07:58 Dose: 1 mg Hydroxyzine HCl (Hydroxyzine Hcl 25 Mg Tablet) 25 mg PO Q6H PRN PRN Reason: mild anxiety Lamotrigine (Lamotrigine 25 Mg Tablet) 75 mg PO BEDTIME [facility]ONNE Last Admin: 03/24/25 21:46 Dose: 75 mg Lamotrigine (Lamotrigine 100 Mg Tablet) 100 mg PO DAILY Y[facility]ONNE Last Admin: 03/25/25 07:58 Dose: 100 mg Lorazepam (Lorazepam 1 Mg Tablet) 1 mg PO DAILY PRN PRN Reason: severe anxiety Last Admin: 03/16/25 18:44 Dose: 1 mg Magnesium Hydroxide (Milk Of Magnesia 30 Ml Oral.Susp) 30 ml PO DAILY PRN PRN Reason: Constipation Nicotine (Nicotine 21 Mg Patch.Td24) 21 mg TRANSDERMA DAILY PRN PRN Reason: smoking cessation Nicotine Polacrilex (Nicotine Polacrilex 2 Mg Gum) 4 mg BUCCAL Q2H PRN PRN Reason: Nicotine Cravings Trazodone HCl (Trazodone Hcl 50 Mg Tablet) 50 mg PO BEDTIME MRX1 PRN PRN Reason: Insomnia Last Admin: 03/16/25 22:55 Dose: 50 mg Trazodone HCl (Trazodone Hcl 50 Mg Tablet) 50 mg PO BEDTIME [facility]ONNE Last Admin: 03/24/25 21:46 Dose: 50 mg Allergies Allergies Allergy/AdvReac Type Severity Reaction Status Date / Time Penicillins Allergy Hives Verified 03/13/25 13:13 Assessment & Plan Assessment & Plan (1) MDD (major depressive disorder), recurrent severe, without psychosis: Status: Acute Code(s): F33.2 - Major depressive disorder, recurrent severe without psychotic features (2) Borderline personality disorder: Status: Acute Code(s): F60.3 - Borderline personality disorder Plan HPI: Pt is a 19 yo trans(-male?) They/Them, college student with PMH for MDD since childhood, Borderline PD, chronic SI, SIB, self-reports ASD who presents for intentional overdose in face of worsening depression and anxiety from relational stress. Pt reports life-long depression, that abated toward end of high-school but resurfaced last year during college and pt took a leave of absence in Spring 2024 for SI and depression. At home with parents, on Celexa and Lexapro, depression worsened and pt endorses diminished interest, energy, concentration, appetite, poor sleep, psychomotor retardation SI (very hurt by parents who were traveling left her home alone in this condition). Depression seemed to get better toward end of summer when patient was started on Lexapro (depression likely also improved since heading back to college). However, over past few weeks at school pt reports increased depression/anxiety due to relationship issues...feeling left out by friend...having more meltdowns and increasing SI thoughts...This Sunday, () patients plans changed due to conflicts...which was overwhelming; she could not stop crying... Dissociating at times...[place] friends left without her. This past week she had been having increased SI but was able to work through it until this past Sunday when issue between friends left her feeling too hurt, too abandoned to cope and went back to her dorm and took overdose; patient wanted to at first...but then realized that mostly they did not really want to but just wanted people to know how bad they were feeling; patient called friend, therapist and ambulance was called. Pt mostly glad about being alive. Denies any drug or alcohol abuse no hx of manic episodes/behaviors Hospital course/Formulation/clinical reasoning: History of chronic depression only partially treated by medication. This coupled with high expressed emotion and emotional reactivity, leads to chronic SI which worsens from time to time. Patient feels however that much of her struggles are due to being triggered by feeling abandoned. Patient says they are ambivalent about being alive however all there discussions are about future oriented activities such as getting back to and finishing school, graduating etc. Discussed medication management. Lamictal recently increased to 175 mg about a week ago. Photovoltaic Testing Technician agrees that this could be further titrated to 200 mg but would give it another week before doing so. Discussed antipsychotic medication, risks/side effects of antipsychotics and patient agrees to try low-dose risperidone to help quell emotional reactivity. 03/18: Continue tx 03/19: Risperdal change to HS Risperdal 0.25 mg bid prn for grounding support 03/19: DC Risperdal 0.25 mg bid prn Perphenazine 4 mg bid prn for grounding support. 03/21/25: Meet with patient in Group room. Reports sleep has been better. Appetite is normal. Report medication has been helpful. Denies side effects but report more dissociated after started taking PRN Risperidone yesterday morning but they were not sure neither. Being here is better environment as they get less triggers. Report anxiety a 5/10 and depression 5-7. Have good visit with family member. They are visible, attended groups, bright affect,slept for 7 hours. 03/22/25: Patient slept for 7 hours, visible, attended groups, included fresh air, appropriate. Appear bright, congruent with mood. Reports anxiety and depression are normal baseline. Compliant with medication, denies side effects, no extra or more than normal dissociated. Patient has a best friend visiting today. Resting in bed in the afternoon using weighted blanket 03/23 Overall feeling much better, stable, sleeping well. Pt reports no SI and none over the weekend. Some dissociative moments. Discussed medications and how the prn risperdal worsened dissociative experience but that Perphenazine helped mellow them out. Pt agreed to lower perphenazine to 2mg and schedule it and leave the other as a prn. Discussed discharge options and pt feels they might not be ready to go back to school (in process of waiting for an appeal) given triggers there. Instead of school, pt wants to go to a residential place; they are hoping that after residential they might go back to their parents, though pt has some trepidation about being at home with parents. 03/24 Patient reports that she still depressed but overall remains feeling better; no SI. Discussed medications at length and patient feels that both Risperdal and Perphenazine made her brain foggy... And did not really help reduce any dissociative episodes or help her feel more emotionally stable; also discussed Abilify. discussed other options to help with anxiety and patient decided to try Intuniv (reviewed risks/side-effects). Patient did try clonidine as a p.r.n. which did seem helpful. Also discussed lithium as something to keep in mind however patient and senior writer agree that this can be further discussed with outpatient provider especially as patient feels that depressive episodes are more situational and triggered by events rather than simply organic. They however agreed to increasing Lamictal 03/25 Patient reports they are doing okay but is feeling sad and anxious since they have to go home for 2 weeks before they are able to go to a residential program. They feel they will be able to tolerate it because patient is father who is a prime trigger, will not be there; patient says that and her mom were able to coexist. Discussed medications and patient will try a higher dose of Intuniv. Patient plans to get a locked box just to help get some additional help during times of emotional impulsivity. Patient says they knows that the will get through this time even though that feels overwhelming at the moment. Patient shared some of her goals and plans in their life which patient aims to achieve. -will increase Intuniv to 2 mg daily; if not helpful will discontinue and patient will just use clonidine Patient remains in good behavioral and impulse control; appropriate with peers and staff and engaged in treatment Patient is stable on current medication regimen Plan: CV Q 15 minute checks Increase Intuniv 2 mg daily DC risperidone DC Perphenazine P.r.n. clonidine ordered; may consider Intuniv Continue Lamictal 175 mg daily; titrate to 200 mg before discharge Continue Lexapro 20 mg Clonidine p.r.n. Gather collateral Medication trials during this admission Risperidone: brain is fog not helpful Perphenazine; brain is fog; not helpful Patient educated on: diagnosis, medication risk/benefits and therapeutic strategies Informed Consent: understands Reason for continued inpatient stay Substantial Risk for: stable for discharge Time Spent With Patient Time: Total time managing care of this patient today ____ minutes.
[2025-03-25 20:00] VITALS: BP 131/66; PULSE 94; RESP 18; TEMP 37; O2SAT 95
[2025-03-26 07:00] VITALS: BMI 25.0
[2025-03-26 08:00] VITALS: BP 100/56; PULSE 87; RESP 16; TEMP 37.1; O2SAT 98
[2025-03-26] MEDS: guanFACINE HCl ER 2 MG TAB.ER.24H PO (08:03)
--- NOTE | 2025-03-26 12:43 | HO.PSYCHPN ---
Subjective Subjective Date of Service: 03/26/25 Reason For Visit: SI Subjective Notes: Conditional Voluntary Healthcare Proxy: No Guardianship: No Medical Problems Affecting Mental Status: No Interim History: Preparing for discharge on 03/27. Working with the team on preparations. Initiated their FMLA, discussed this with team and their boss. Attending groups, no med SE. Attempted to meet with pt x 2 however they were actively engaged with her discharge preparations. Denies current concerns/questions. Denies SI,HI, AH,VH Medication Compliance: Yes Side effects from medications: No Attending Groups: Yes Review of Systems Acute medical concerns: No Medical Review of Systems: unchanged Review of Systems Review of Systems Denies Mental Status Exam Mental Status Exam Patient Appearance: Appropriate Patient Orientation: Person, Place, Time and Situation Level of Consciousness: Alert Patient Behavior: Talkative and Good Eye Contact Mood Description: Anxious and Apprehensive Affect Description: Anxious and Apprehensive Patient Cognition Impaired: No Ability to Follow Directions: Good Speech Pattern: Spontaneous Speech Memory Description: Intact Hallucinations: None Delusions: Not Present Perceptual Disturbances: Depersonalization Thought Process: Distracted Thought Content: positive for Circumstantial Depressive Symptoms: Increased Anxiety Judgement: Good Diagnostics Vital Signs (24Hr): Vital Signs - 24 hr 03/25/25 20:00 03/26/25 08:00 Temperature 98.6 F 98.7 F Pulse Rate 94 87 Respiratory Rate 18 16 Blood Pressure 131/66 100/56 L Pulse Oximetry 95 98 Oxygen Delivery Method Room Air Room Air BMI result Body Mass Index 25.0 Labs 03/13/25 13:55 03/17/25 08:58 Medications Medications Current Medications Acetaminophen (Acetaminophen 325 Mg Tablet) 650 mg PO Q6H PRN PRN Reason: Headache/Pain, Scale 1-10 Al Hydroxide/Mg Hydroxide (Magnesium Hydrox/Alum Hydrox 30 Ml Oral.Susp) 30 ml PO Q6H PRN PRN Reason: Heartburn/Nausea Last Admin: 03/24/25 18:03 Dose: 30 ml Clonidine HCl (Clonidine Hcl 0.1 Mg Tablet) 0.1 mg PO Q4H PRN; Protocol PRN Reason: moderate anxiety Last Admin: 03/24/25 10:54 Dose: 0.1 mg Escitalopram Oxalate (Escitalopram Oxalate 20 Mg Tablet) 20 mg PO DAILY YVONNE Last Admin: 03/26/25 08:03 Dose: 20 mg Guanfacine HCl (Guanfacine Hcl Er 2 Mg Tab.Er.24h) 2 mg PO DAILY [facility] Last Admin: 03/26/25 08:03 Dose: 2 mg Hydroxyzine HCl (Hydroxyzine Hcl 25 Mg Tablet) 25 mg PO Q6H PRN PRN Reason: mild anxiety Lamotrigine (Lamotrigine 100 Mg Tablet) 100 mg PO BID [facility] Last Admin: 03/26/25 08:03 Dose: 100 mg Lorazepam (Lorazepam 1 Mg Tablet) 1 mg PO DAILY PRN PRN Reason: severe anxiety Last Admin: 03/16/25 18:44 Dose: 1 mg Magnesium Hydroxide (Milk Of Magnesia 30 Ml Oral.Susp) 30 ml PO DAILY PRN PRN Reason: Constipation Nicotine (Nicotine 21 Mg Patch.Td24) 21 mg TRANSDERMA DAILY PRN PRN Reason: smoking cessation Nicotine Polacrilex (Nicotine Polacrilex 2 Mg Gum) 4 mg BUCCAL Q2H PRN PRN Reason: Nicotine Cravings Trazodone HCl (Trazodone Hcl 50 Mg Tablet) 50 mg PO BEDTIME MRX1 PRN PRN Reason: Insomnia Last Admin: 03/25/25 22:32 Dose: 50 mg Trazodone HCl (Trazodone Hcl 50 Mg Tablet) 50 mg PO BEDTIME YVONNE Last Admin: 03/25/25 21:31 Dose: 50 mg Allergies Allergies Allergy/AdvReac Type Severity Reaction Status Date / Time Penicillins Allergy Hives Verified 03/13/25 13:13 Assessment & Plan Assessment & Plan (1) MDD (major depressive disorder), recurrent severe, without psychosis: Status: Acute Code(s): F33.2 - Major depressive disorder, recurrent severe without psychotic features (2) Borderline personality disorder: Status: Acute Code(s): F60.3 - Borderline personality disorder Plan HPI: Pt is a 19 yo trans(-male?) They/Them, college student with PMH for MDD since childhood, Borderline PD, chronic SI, SIB, self-reports ASD who presents for intentional overdose in face of worsening depression and anxiety from relational stress. Pt reports life-long depression, that abated toward end of high-school but resurfaced last year during college and pt took a leave of absence in Spring 2024 for SI and depression. At home with parents, on Celexa and Lexapro, depression worsened and pt endorses diminished interest, energy, concentration, appetite, poor sleep, psychomotor retardation SI (very hurt by parents who were traveling left her home alone in this condition). Depression seemed to get better toward end of summer when patient was started on Lexapro (depression likely also improved since heading back to college). However, over past few weeks at school pt reports increased depression/anxiety due to relationship issues...feeling left out by friend...having more meltdowns and increasing SI thoughts...This Sunday, () patients plans changed due to conflicts...which was overwhelming; she could not stop crying... Dissociating at times...[place] friends left without her. This past week she had been having increased SI but was able to work through it until this past Sunday when issue between friends left her feeling too hurt, too abandoned to cope and went back to her dorm and took overdose; patient wanted to at first...but then realized that mostly they did not really want to but just wanted people to know how bad they were feeling; patient called friend, therapist and ambulance was called. Pt mostly glad about being alive. Denies any drug or alcohol abuse no hx of manic episodes/behaviors Hospital course/Formulation/clinical reasoning: History of chronic depression only partially treated by medication. This coupled with high expressed emotion and emotional reactivity, leads to chronic SI which worsens from time to time. Patient feels however that much of her struggles are due to being triggered by feeling abandoned. Patient says they are ambivalent about being alive however all there discussions are about future oriented activities such as getting back to and finishing school, graduating etc. Discussed medication management. Lamictal recently increased to 175 mg about a week ago. Tree Fruit And Nut Crops Farmer agrees that this could be further titrated to 200 mg but would give it another week before doing so. Discussed antipsychotic medication, risks/side effects of antipsychotics and patient agrees to try low-dose risperidone to help quell emotional reactivity. 03/18: Continue tx 03/19: Risperdal change to HS Risperdal 0.25 mg bid prn for grounding support 03/19: DC Risperdal 0.25 mg bid prn Perphenazine 4 mg bid prn for grounding support. 03/21/25: Meet with patient in Group room. Reports sleep has been better. Appetite is normal. Report medication has been helpful. Denies side effects but report more dissociated after started taking PRN Risperidone yesterday morning but they were not sure neither. Being here is better environment as they get less triggers. Report anxiety a 5/10 and depression 5-7. Have good visit with family member. They are visible, attended groups, bright affect,slept for 7 hours. 03/22/25: Patient slept for 7 hours, visible, attended groups, included fresh air, appropriate. Appear bright, congruent with mood. Reports anxiety and depression are normal baseline. Compliant with medication, denies side effects, no extra or more than normal dissociated. Patient has a best friend visiting today. Resting in bed in the afternoon using weighted blanket 03/23 Overall feeling much better, stable, sleeping well. Pt reports no SI and none over the weekend. Some dissociative moments. Discussed medications and how the prn risperdal worsened dissociative experience but that Perphenazine helped mellow them out. Pt agreed to lower perphenazine to 2mg and schedule it and leave the other as a prn. Discussed discharge options and pt feels they might not be ready to go back to school (in process of waiting for an appeal) given triggers there. Instead of school, pt wants to go to a residential place; they are hoping that after residential they might go back to their parents, though pt has some trepidation about being at home with parents. 03/24 Patient reports that she still depressed but overall remains feeling better; no SI. Discussed medications at length and patient feels that both Risperdal and Perphenazine made her brain foggy... And did not really help reduce any dissociative episodes or help her feel more emotionally stable; also discussed Abilify. discussed other options to help with anxiety and patient decided to try Intuniv (reviewed risks/side-effects). Patient did try clonidine as a p.r.n. which did seem helpful. Also discussed lithium as something to keep in mind however patient and typewriter assembler agree that this can be further discussed with outpatient provider especially as patient feels that depressive episodes are more situational and triggered by events rather than simply organic. They however agreed to increasing Lamictal 03/25 Patient reports they are doing okay but is feeling sad and anxious since they have to go home for 2 weeks before they are able to go to a residential program. They feel they will be able to tolerate it because patient is father who is a prime trigger, will not be there; patient says that and her mom were able to coexist. Discussed medications and patient will try a higher dose of Intuniv. Patient plans to get a locked box just to help get some additional help during times of emotional impulsivity. Patient says they knows that the will get through this time even though that feels overwhelming at the moment. Patient shared some of her goals and plans in their life which patient aims to achieve. -will increase Intuniv to 2 mg daily; if not helpful will discontinue and patient will just use clonidine 03/26 Discharge 03/27. Patient remains in good behavioral and impulse control; appropriate with peers and staff and engaged in treatment Patient is stable on current medication regimen Plan: CV Q 15 minute checks Increase Intuniv 2 mg daily DC risperidone DC Perphenazine P.r.n. clonidine ordered; may consider Intuniv Continue Lamictal 175 mg daily; titrate to 200 mg before discharge Continue Lexapro 20 mg Clonidine p.r.n. Gather collateral Medication trials during this admission Risperidone: brain is fog not helpful Perphenazine; brain is fog; not helpful Reason for continued inpatient stay Substantial Risk for: stable for discharge Time Spent With Patient Time: Total time managing care of this patient today ____ minutes.
[2025-03-26 20:00] VITALS: BP 118/59; PULSE 66; RESP 18; TEMP 36.8; O2SAT 100
[2025-03-27 08:00] VITALS: BP 108/56; PULSE 72; RESP 16; TEMP 35.9; O2SAT 100
[2025-03-27] MEDS: guanFACINE HCl ER 2 MG TAB.ER.24H PO (08:59)
--- NOTE | 2025-03-27 10:41 | P.DS_ITS ---
DS: Providers Provider Date of Service: 03/27/25 Date of admission: 03/16/25 15:03 Date of discharge: 03/27/25 Primary care physician: Unknown Physician Attending physician on admission: Renard Ferguson Consults: 03/13/25 19:39 ED CARE Team Crisis Consult Routine Comment: Reason for consultation: SI, intentional overdose Attending physician on discharge: Renard Ferguson DS: Diagnosis Discharge Diagnosis (1) MDD (major depressive disorder), recurrent severe, without psychosis: Status: Acute (2) Borderline personality disorder: Status: Acute DS: Medications Discharge Medications Home Medications: Previous Rx's ?Medication ?Instructions ?Recorded clonidine HCl 0.1 mg tablet 0.1 mg PO Q4H PRN moderate anxiety 03/27/25 14 days #20 tabs escitalopram oxalate 20 mg tablet 20 mg PO DAILY 14 da ys #14 tabs 03/27/25 lamotrigine 100 mg tablet 100 mg PO BID 14 days #28 ta bs 03/27/25 lorazepam 1 mg tablet 1 mg PO DAILY PRN severe anx iety 03/27/25 30 days #4 tabs trazodone 50 mg tablet 50 mg PO BEDTIME PRN insomni a 14 03/27/25 days #14 tabs Mental Status Exam Mental Status Exam Narrative: Pt is alert and oriented; behavior is cooperative, friendly and calm; patient is not in distress; dressed in casual attire with hair; adequate hygiene and grooming; mood is described as ok and affect congruent, bright, calm; eye contact appropriate; Speech is normal rate, volume and prosody and not pressured; no psychomotor agitation/retardation present; thought process is organized and goal directed; Thought content is on tx; otherwise pertinent to relevant topics and without any delusional content, paranoid ideations or grandiosity; denies any SI/HI. Denies AVH and there is no evidence of perceptual disturbance. Patients insight and judgment are fair. DS: Summary Hospital Course Hospital Course: HPI: Pt is a 19 yo trans(-male?) They/Them, college student with PMH for MDD since childhood, Borderline PD, chronic SI, SIB, self-reports ASD who presents for intentional overdose in face of worsening depression and anxiety from relational stress. Pt reports life-long depression, that abated toward end of high-school but resurfaced last year during college and pt took a leave of absence in Spring 2024 for SI and depression. At home with parents, on Celexa and Lexapro, depression worsened and pt endorses diminished interest, energy, concentration, appetite, poor sleep, psychomotor retardation SI (very hurt by parents who were traveling left her home alone in this condition). Depression seemed to get better toward end of summer when patient was started on Lexapro (depression likely also improved since heading back to college). However, over past few weeks at school pt reports increased depression/anxiety due to relationship issues...feeling left out by friend...having more meltdowns and increasing SI thoughts...This Sunday, () patients plans changed due to conflicts...which was overwhelming; she could not stop crying... Dissociating at times...Pep friends left without her. This past week she had been having increased SI but was able to work through it until this past Sunday when issue between friends left her feeling too hurt, too abandoned to cope and went back to her dorm and took overdose; patient wanted to at first...but then realized that mostly they did not really want to but just wanted people to know how bad they were feeling; patient called friend, therapist and ambulance was called. Pt mostly glad about being alive. Denies any drug or alcohol abuse no hx of manic episodes/behaviors Hospital course/Formulation/clinical reasoning: History of chronic depression only partially treated by medication. This coupled with high expressed emotion and emotional reactivity, leads to chronic SI which worsens from time to time. Patient feels however that much of her struggles are due to being triggered by feeling abandoned. Patient says they are ambivalent about being alive however all there discussions are about future oriented activities such as getting back to and finishing school, graduating etc. Discussed medication management. Lamictal recently increased to 175 mg about a week ago. Media Production Operator agrees that this could be further titrated to 200 mg but would give it another week before doing so. Discussed antipsychotic medication, risks/side effects of antipsychotics and patient agrees to try low- dose risperidone to help quell emotional reactivity. On the unit, patient remained in good behavioral and impulse control, was appropriate with peers and staff and engaged in treatment. Depression resolved. Patient continued to struggle with anxiety and intermittently with dissociative episodes and was willing to try some medications to see if they could be helpful. Regarding medications: Ultimately low-dose risperidone and perphenazine were not effective for helping calm down emotional reactivity and discontinued; Intuniv also was not helpful. Patient did benefit from p.r.n. clonidine which was continued. Lamictal was increased to 100 mg b.i.d. and trazodone was increased to 50 mg. Other options were discussed such as lithium and Abilify however patient felt it best to leave medication regimen as is and discuss other changes with outpatient provider. Also discussed possible PMDD diagnosis which patient will also discuss with outpatient provider. Patient returned to baseline. Patient ultimately decided not to return to school and instead attend a residential program. Patient did have to go home for 2-3 weeks prior to residential program starting which patient had anxiety about but felt they would be able to handle. Patient asked for medications to be given in 2 week scripts with refills so they would not have too many extra pills on hand. Patient remained in good behavioral and impulse control throughout their time on the unit. Mood much better and no SI. Patient also future oriented and looking forward to continuing treatment as an outpatient. While they will continue to struggle with emotional reactivity and intermittent SI, this is a chronic struggle that will not resolve with longer inpatient stay but rather requires consistent outpatient treatment with which patient is eager to continue. Patient has a safety plan and will reach out for help if feeling unsafe. Patient not in imminent risk risk for harm to self or others and appropriate to return to the community for treatment. Medications: Continued on Lexapro 20mg Increased Lamictal to 100mg BID Increased Trazdone to 50mg Started Clonidine prn Time spent discussing smoking cessation with patient: 3 to 10 minutes Status at Discharge Functional status at discharge: independent ambulation Overall status at discharge: patient is back to baseline Time Spent with Patient Time attestation: Total time managing care of this patient today _40___ minutes. Time spent: Greater than 30 minutes Specific discharge activities: Met with patient; discussed with team; charting; prescription Discharge Plan Discharge Anticipated Discharge Date/Time: 03/27/25 11:30 Patient Disposition: Home, Self-Care Discharge Diagnosis: MDD, recurrent, severe in full remission Referrals: Med Provider Shantell Parkinson [facility] [Other] - 04/01/25 4:40 pm [facility] [Other] - 04/08/25 Referral Note: Call Ben at [phone] to set up a date to begin the program. Re-Consultation for DBT with Codie Villegas [Other] - 04/06/25 3:00 pm Discharge Medications: New clonidine HCl 0.1 mg Tablet 0.1 mg PO Q4H PRN (Reason: moderate anxiety) 14 Days Qty: 20 1RF Protocol: Hold for SBP< HOLD for SBP < : 90 lorazepam 1 mg Tablet 1 mg PO DAILY PRN (Reason: severe anxiety) 30 Days Qty: 4 1RF Continued lamotrigine 100 mg Tablet 100 mg PO BID 14 Days Qty: 28 1RF escitalopram oxalate 20 mg Tablet 20 mg PO DAILY 14 Days Qty: 14 1RF Changed trazodone 50 mg Tablet 50 mg PO BEDTIME PRN (Reason: insomnia) 14 Days Qty: 14 1RF Discharge Orders: Discharge Order (Routine); Ordered 03/27/25 Ordered By: Renard Ferguson Diet: Regular diet Activity on Discharge: As tolerated Stand Alone Forms: Patient Portal Discharge page, Community Support Print Language: Peruvian Care Plan Goals: Maintain mood and safe behaviors Take medications as prescribed Practice coping skills Continue with outpatient providers and reach out to them as needed Health Concerns: Mood stability and behaviors Plan of Treatment: Follow up with your PCP, psychiatric provider and other outpatient providers regarding above concerns Take medications as prescribed Medications discussed/tried: Risperdal; not helpful Perphenazine: not helpful Intuniv not helpful Discussed options of [place] or Abilify which patient will discuss with outpt provider Discussed possible dx of PMDD and increasing Lexapro by 10mg 1 week prior to menses and then for first 2 days of menses which patient will discuss with outpt provider Assessment: Risk assessment at time of discharge:? Patient was interviewed prior to discharge and found to be fully oriented and without any SI or HI. Patient has improved insight and judgment and wants to continue treatment. Patient is not in imminent risk of harm to self or others and has a safety plan that includes p resenting to the closest ER or calling 911 if feeling unsafe.? Patient has been observed closely by nursing and unit staff throughout admission; patient has not engaged in any behaviors that suggest dangerousness to self or others and has demonstrated appropriate behaviors and impulse control
== END 2025-03-27 11:55 | disposition home or self-care (01) | DRG 885 ==
LOC: HO.ED 19:48 → HO.PM5 03-16 15:21
PROVIDERS: Registered Nurse Emergency; Admitting Provider Psychiatry & Neurology Psychiatry; Emergency Provider Emergency Medicine Emergency Medical Services; Visit Provider Psychiatry & Neurology Psychiatry
DX: F33.2 Major depressive disorder, recurrent severe without psychotic features (principal); F64.0 Transsexualism; F60.3 Borderline personality disorder; T42.6X2A Poisoning by other antiepileptic and sedative-hypnotic drugs, intentional self-harm, initial encounter; T39.312A Poisoning by propionic acid derivatives, intentional self-harm, initial encounter; T42.4X2A Poisoning by benzodiazepines, intentional self-harm, initial encounter; Z79.899 Other long term (current) drug therapy
CPT/HCPCS: 36415; 80053; 80061; 80143; 80179; 80307; 81003; 83036; 83735; 84702; 85025; 85610; 93005; 99285; S9485

== ENCOUNTER → 2025-03-13 13:26 | Outpatient (BNV) | payer OTHER, SELFPAY | PROVIDERS: Emergency Provider Emergency Medicine Emergency Medical Services; Visit Provider Internal Medicine Cardiovascular Disease | DX: I45.10 Unspecified right bundle-branch block (principal); R00.0 Tachycardia, unspecified | CPT/HCPCS: 93010 ==

== ENCOUNTER → 2025-03-16 15:03 | Outpatient (BNV) | payer OTHER, SELFPAY | PROVIDERS: Admitting Provider Psychiatry & Neurology Psychiatry; Emergency Provider Emergency Medicine Emergency Medical Services; Visit Provider Psychiatry & Neurology Psychiatry | DX: F33.2 Major depressive disorder, recurrent severe without psychotic features (principal); F60.3 Borderline personality disorder | CPT/HCPCS: 90792; 99231; 99232; 99239 ==

== ENCOUNTER → 2025-03-16 15:03 | Outpatient (BNV) | payer OTHER, SELFPAY | PROVIDERS: Admitting Provider Psychiatry & Neurology Psychiatry; Emergency Provider Emergency Medicine Emergency Medical Services; Visit Provider Nurse Practitioner Family | DX: R45.851 Suicidal ideations (principal) | CPT/HCPCS: 99221 ==